=== PATIENT | male | born 1960 | race Caucasian/White ===

== ENCOUNTER 2025-03-02 15:23 | Inpatient (IN) | payer MEDICARE, BC, SELFPAY ==
--- NOTE | ~2025-03-02 | CT_ITS ---
CLINICAL HISTORY: AMS CT head without contrast. COMPARISON: CT head dated 03/02/25 at 15:51 EDT FINDINGS: Cutaneous mauro along the lateral right calvarium. The visualized paranasal sinuses are clear. The mastoid air cells are clear. No calvarial fracture. Atherosclerotic intracranial vasculature. No evidence for mass or mass effect. No intracranial hemorrhage or abnormal extra-axial fluid collection. The ventricles are proportional with the degree of mild global cerebral volume loss without evidence of hydrocephalus. Basilar cisterns are patent. Posterior fossa appears unremarkable. IMPRESSION: 1. No acute intracranial findings. This document has been electronically signed by: Blake Crouch MD on 03/06/2025 17:56:44
--- NOTE | ~2025-03-02 | XR_ITS ---
CLINICAL HISTORY: posterior rib pain, fall, no sob 6 view left ribs Comparison: None provided Findings: Mild irregular contour in the posterior aspect of the left 8th and 9th ribs. No left-sided pneumothorax or significant pleural effusion. Degenerative changes of the thoracic spine. IMPRESSION: 1. Nondisplaced fractures of the left 8th and 9th ribs posteriorly of indeterminate age. Correlate clinically. This document has been electronically signed by: Balbina Lopez MD on 03/02/2025 19:32:53
--- NOTE | ~2025-03-02 | CT_ITS ---
CLINICAL HISTORY: fall head strike CT cervical spine without contrast Comparison: None provided Findings: Minimal grade 1 anterolisthesis at C7-T1. Otherwise alignment is maintained. Vertebral body height is maintained. No acute fracture in the cervical spine. Craniocervical junction is intact. Multilevel degenerative disc disease most significantly involving C5-6 and C6-7. Prevertebral soft tissues within normal limits. Lung apices are clear. IMPRESSION: No acute findings. This document has been electronically signed by: Balbina Lopez MD on 03/02/2025 19:03:49
--- NOTE | ~2025-03-02 | CT_ITS ---
CLINICAL HISTORY: fall +head strike CT head without contrast Comparison: None provided Findings: No intra-axial mass, midline shift, hydrocephalus, or acute hemorrhage. No significant atrophy. Mild nonspecific supratentorial white matter hypodensities most suggestive of mild chronic small-vessel ischemic changes. Small encephalomalacia of the superior aspect of the left cerebellar hemisphere suggestive of small nonacute infarct. Atherosclerotic vascular disease. There is no sinus or mastoid fluid. The orbits are within normal limits. There is no acute Skull fracture. IMPRESSION: 1. No acute intracranial findings. 2. Small nonacute left cerebellar hemisphere infarct and mild white matter chronic ischemic changes. This document has been electronically signed by: Balbina Lopez MD on 03/02/2025 18:56:27
--- NOTE | ~2025-03-02 | MR_ITS ---
CLINICAL HISTORY: AMS, ? subacute stroke MR brain without contrast. COMPARISON: CT head dated 03/06/25 at 17:04 EDT FINDINGS: No abnormal diffusion restriction in the brain parenchyma or extra-axial spaces. No evidence of mass, mass effect or midline shift. No intracranial hemorrhage or abnormal extra-axial fluid collection. The ventricles are proportional with the degree of mild cerebral volume loss without evidence of hydrocephalus. Basilar cisterns are patent. Cerebellar hemispheres and cerebellar vermis are normal. Fourth ventricle is normal. Chronic left cerebellar infarcts. Intracranial flow voids are patent. The visualized paranasal sinuses and mastoid air-cells are clear. IMPRESSION: 1. No acute intracranial findings. No evidence of acute ischemia, mass or mass effect. 2. Chronic left cerebellar infarct. This document has been electronically signed by: Blake Crouch MD on 03/07/2025 16:36:55
[2025-03-02 15:30] VITALS: BP 107/87; PULSE 69; RESP 16; TEMP 36.7; O2SAT 96; BMI 20.6
--- NOTE | 2025-03-02 15:31 | ECG_ITS ---
Test Reason : weakness, fall Blood Pressure : */* mmHG Vent. Rate : 67 BPM Atrial Rate : 67 BPM P-R Int : 170 ms QRS Dur : 104 ms QT Int : 426 ms P-R-T Axes : 27 5 -57 degrees QTcB Int : 450 ms Sinus rhythm with occasional Premature ventricular complexes Septal infarct , age undetermined ST & T wave abnormality, consider anterolateral ischemia Abnormal ECG No previous ECGs available Referred By: Summer Willett Electronically Signed By: JONI LUX MD
--- NOTE | 2025-03-02 15:35 | ED.FALL ---
HPI - Fall General Chief Complaint: Fall Stated Complaint: fell minor laceration on back of head Time Seen by Provider: 03/02/25 16:02 Source: patient Mode of arrival: ambulatory Limitations: no limitations History of Present Illness ED Provider: Dr. Sissy Lima HPI Narrative: patient comes to the emergency room accompanied by his . Earlier today, patient had fall, complaining of a laceration to the scalp on the right side. Patient denies being on blood thinners. According to the patient's , patient's seems to be more unsteady than usual for the last few weeks. According to the , the patient has been a bit more shaky than usual. patient denies headache or neck pain. Patient also complaining of scalp pain. Patient has posterior rib pain as well. Patient has no difficulty breathing. Related Data Home Medications ?Medication ?Instructions ?Recorded ?Confirmed buprenorphine 8 mg-naloxone 2 mg 1 film sublingual DAILY 03/03/25 03/03/25 sublingual film calcipotriene 0.005 % topical 1 appl topical BID 03/03/25 03/03/25 ointment diltiazem HCl 360 mg 360 mg PO DAILY 03/03/25 03/03/25 capsule,extended release 24 hr duloxetine 30 mg capsule,delayed 30 mg PO BID 03/03/25 03/03/25 release fluorouracil 5 % topical cream 1 appl topical BID 03/03/25 03/03/25 gabapentin 400 mg capsule 400 mg PO DAILY 03/03/25 03/03/25 gabapentin 800 mg tablet 800 mg PO BID 03/03/25 03/03/25 ibuprofen 600 mg tablet 600 mg PO TID 03/03/25 03/03/25 lisinopril 40 mg tablet 40 mg PO QAM 03/03/25 03/03/25 metoprolol tartrate 25 mg tablet 12.5 mg PO BID 03/03/25 03/03/25 omeprazole 20 mg capsule,delayed 20 mg PO DAILY 03/03/25 03/03/25 release ondansetron HCl 8 mg tablet 8 mg PO Q8H PRN Nausea And Vomiting 03/03/25 03/03/25 tizanidine 4 mg tablet 4 mg PO BID PRN Muscle Spasm 03/03/25 03/03/25 valacyclovir 1 gram tablet 2,000 mg PO Q12H PRN Outbreak 03/03/25 03/03/25 Allergies Allergy/AdvReac Type Severity Reaction Status Date / Time Sulfa (Sulfonamide Allergy Rash Verified 03/02/25 15:37 Antibiotics) Review of Systems Review of Systems: Constitutional : No Weight loss, No Fever, No Chills, No Night Sweats, No Fatigue, No Malaise ENT/Mouth : No Hearing loss, No Ear Pain, No Nasal Congestion, No Sinus Pain, No Hoarseness, No sore throat, No Rhinorrhea, No Swallowing Difficulty Eyes: No Eye Pain, No Swelling, No Redness, No Foreign Body, No Discharge, No Vision Changes Cardiovascular : No Chest Pain, No SOB, No Dyspnea on Exertion, No Orthopnea, No Edema, No Palpitations Respiratory : No Cough, No Sputum, No Wheezing, No Smoke Exposure, No Dyspnea Gastrointestinal : No Nausea, No Vomiting, No Diarrhea, No Constipation, No abdominal Pain, No Hematochezia, No Melena Genitourinary : no irregular bleeding, No Dysuria, No Urinary Frequency, No Hematuria, No Urinary Incontinence, No Urgency, No Flank Pain, No Urinary Flow Changes, No Hesitancy Musculoskeletal : No joint pain, No Myalgias, No Joint Swelling, complaining of posterior rib pain on the left side Skin : Complaining of a laceration to the right side of the scalp Neuro : No Weakness, No Numbness, No Paresthesias, No Loss of Consciousness, No Dizziness, No Headache Psych : No Anxiety/Panic, No Depression, No SI/HI/AH/VH, No Social Issues, Heme/Lymph: No Bruising, No Bleeding,No Lymphadenopathy Endocrine : No Polyuria, No Polydipsia, No Temperature Intolerance [facility] Past Medical History Medical History Hypertension Social History Social History Alcohol intake: current Alcohol intake frequency: 3 or more drinks per day Alcohol type: beer Smoked in Last 30 Days: No Use of substances other than those prescribed or required for medical reasons: No Advance Directives: No Advance Directives Information Provided: No Do you have a plan to hurt others: No Plan Physical Exam Vital Signs: Vital Signs: Last Vital Signs Temp 97.6 F 03/03/25 08:00 Pulse 63 03/03/25 16:30 Resp 18 03/03/25 16:30 BP 176/93 H 03/03/25 16:30 Pulse Ox 98 06/30/25 16:30 O2 Del Method Room Air 03/03/25 08:00 BMI result Body Mass Index 20.6 Const: Other: Appearance: Alert. Oriented X3. No acute distress. Eyes: Pupils equal, round and reactive to light. ENT: Pharynx normal. Neck: Normal inspection. Neck supple. No lymph nodes noted. No crepitus CVS: Normal heart rate and rhythm. Pulses normal. Normal S1 and S2 Respiratory: No respiratory distress. Breath sounds normal. No Wheezing. No rales Abdomen: Soft and nontender. No rigidity. No distention. Skin: Skin warm and dry. Normal skin color. Normal skin turgor. patient has a 4 cm laceration in the scalp Extremities: No lower extremity edema. No Lacerations. No Rash. Patient has bilateral charcot arthopathy Neuro: Oriented X 3. No motor deficit. No sensory deficit. Moving all extremities. No slurred speech. CN 2 through 12 grossly intact. Patient has normal facies. However, patient's seems to have a bit of resting tremor in 1 hand at the time, almost pill rolling like. also, patient's seems to be having intention tremor. When patient reaches out for objects, the tremor gets worse. Psych: calm, cooperative, normal affect Course Course Course Narrative: 03/02/25 1535 CORTES Santizo This is a Rapid Medical Examination (RME) performed by Rachana Willett PA-C in triage. Full HPI, ROS, assessment and treatment plan per primary provider in the Main ED. Hx: 64 yo M here w/ following fall mirian stairs [employer]. reports ascending his garage stairs, when he felt too weak to open the door, fell backwards down 4 stairs w/ head strike. no LOC. no thinners. states patient has felt generally unwell, unsteady and shaky for the past few days. PE/vitals: tremulous. AOX3. lac to posterior head, no active bleeding. no midline c spine tenderness. Plan: labs, ekg, imaging Medications Administered Generic Name Dose Route Start Last Admin Trade Name Freq PRN Reason Stop Dose Admin Buprenorphine/Naloxone 1 film 03/03/25 14:30 03/03/25 15:00 Buprenorphine/Naloxone 8/2 Mg Film SUBLINGUAL 1 film DAILY JAMA Administration Diltiazem HCl 360 mg 03/03/25 14:30 03/03/25 14:55 Diltiazem Hcl Cd 180 Mg Cap.Er.24h PO 360 mg DAILY JAMA Administration Protocol Enoxaparin Sodium 40 mg 03/03/25 11:00 03/03/25 12:11 Enoxaparin Sodium 40 Mg/0.4 Ml Syringe SUBCUT 40 mg Q24H JAMA Administration Famotidine 20 mg 03/03/25 10:40 03/03/25 11:11 Famotidine 20 Mg Tablet PO 20 mg BID JAMA Administration Folic Acid 1 mg 03/03/25 10:40 03/03/25 11:11 Folic Acid 1 Mg Tablet PO 03/06/25 10:39 1 mg DAILY JAMA Administration Thiamine HCl 200 mg/ Sodium 102 mls @ 204 mls/hr 03/03/25 11:00 03/03/25 13:30 Chloride IV 03/04/25 23:29 Infused Q12H JAMA Infusion Ibuprofen 600 mg 03/03/25 15:00 03/03/25 14:54 Ibuprofen 600 Mg Tablet PO 600 mg TID JAMA Administration Lisinopril 40 mg 03/03/25 14:30 03/03/25 14:55 Lisinopril 40 Mg Tablet PO 40 mg DAILY JAMA Administration Protocol Metoprolol Tartrate 12.5 mg 03/03/25 14:30 03/03/25 14:55 Metoprolol Tartrate 12.5 Mg Halftab PO 12.5 mg BID [facility] Administration Protocol Multivitamins/Vitamin C 1 tab 03/03/25 10:40 03/03/25 11:11 Multivitamin Tablet PO 03/06/25 10:39 1 tab DAILY JAMA Administration Sodium Chloride 3 ml 03/03/25 16:00 03/03/25 17:16 0.9 % Sodium Chloride Flush 3 Ml Syringe IVFLUSH 3 ml QSHIFT [facility] Administration Discontinued Medications Generic Name Dose Route Start Last Admin Trade Name Freq PRN Reason Stop Dose Admin Chlordiazepoxide HCl 50 mg 03/03/25 04:47 03/03/25 05:11 Chlordiazepoxide Hcl 25 Mg Capsule PO 03/03/25 04:48 50 mg ONCE ONE Administration Magnesium Sulfate 2 gm in 50 mls @ 25 mls/hr 03/02/25 16:25 03/02/25 18:50 Magnesium Sulfate/H2o IV 03/02/25 18:24 Infused ONCE ONE Infusion Potassium Chloride 10 meq in 100 mls @ 100 mls/hr 03/03/25 13:15 03/03/25 15:03 Potassium Chloride/H20 IV 03/03/25 15:14 100 mls/hr Q1H JAMA Administration Ibuprofen 600 mg 03/02/25 22:44 03/02/25 22:50 Ibuprofen 600 Mg Tablet PO 03/02/25 22:45 600 mg ONCE ONE Administration Lidocaine/Epinephrine 10 ml 03/02/25 16:25 03/02/25 16:49 Lidocaine Hcl 1%/Epi 1:100,000 10 Ml Vial INFILTRATI 03/02/25 16:26 10 ml ONCE ONE Administration Lisinopril 40 mg 03/03/25 09:19 03/03/25 09:41 Lisinopril 40 Mg Tablet PO 03/03/25 09:20 40 mg ONCE ONE Administration Protocol Phenobarbital Sodium 310 mg 03/03/25 09:30 03/03/25 09:36 Phenobarbital Sodium 130 Mg/Ml Im Once IM 03/03/25 09:31 310 mg ONCE ONE Administration Phenobarbital Sodium 230 mg 03/03/25 12:30 03/03/25 16:25 Phenobarbital Sodium 130 Mg/Ml Vial Im Q3hx2 IM 03/03/25 15:31 230 mg Q3H JAMA Administration Potassium Chloride 20 meq 03/02/25 16:26 03/02/25 16:49 Potassium Chloride Er 20 Meq Tab.Er.Prt PO 03/02/25 16:27 20 meq ONCE ONE Administration Procedures Laceration Laceration 1: Site: scalp Size (cm): 4 Description: linear Depth: simple, single layer Local Anesthetic: lidocaine 1% and with epi Amount of anesthesia used (mL): 5 Pre-repair: wound explored Skin layer closed with: other ( mauro) Size (cm): 4-0 Number of sutures: 5 Medical Decision Making Medical Decision Making MDM Narrative: my interpretation of labs: No significant abnormality in patient's hematology, chemistry shows a potassium 3.2, which was repleted p.o., magnesium of 1.3, repleted IV. . It was noted that patient has an elevation in LFTs. Patient has no abdominal pain at all. Urinalysis negative for UTI, ETOH negative I discussed with the patient and his that his head CT shows an old stroke. According to the patient's , she remembers that about a month ago she had a similar episode of weakness and confusion about a month ago which self-resolved. To patient's knowledge, he has never been diagnosed with a TIA overall, patient states that even with a target foot his usually able to walk, however over the last few weeks, he has gradually been declining. I discussed with the patient and his that eventually they will need a neurology consult. It is possible that patient may have tremor versus beginning of Parkinson's. In the meantime, the patient's states that she feels very anxious about taking the patient home because he may fall. I discussed with the patient and his that we can do a physical therapy and case management consult, and tomorrow they will give their recommendations for disposition, both agree with plan x-rays show nondisplaced 8th and 9th rib fractures on the left. Patient aware. Plan: pain control, no difficulty breathing. Time: 08:50 Date: 03/03/25 Provider: CORTES Wilkins Patient in physician observation for case management needs. There was concern overnight that patient was increasingly shaky, question of hallucinating, shouting for a person named Karely overnight. I evaluated patient, patient states that he drinks daily, states that it typically drinks 3 beers at home, and then goes out occasionally as well. Patient states that he drinks every day, states he has been drinking every day for the last 20-30 years. Denies history of stopping alcohol use, unsure of any history of alcohol withdrawal. Patient is alert and oriented however seems to ramble, with a flight of ideas, at one point he seemed as though he thought he knew me. Given this concern that this may be secondary to alcohol withdrawal, he would be best served to be admitted for alcohol withdrawal. Patient started on phenobarb protocol. Transfer of care initiated. Differential Diagnosis Differential Diagnoses: The differential diagnosis associated with the presentation includes ( weakness, UTI, deconditioning, Parkinson's, tremor, intracranial bleed, cervical spine injury) Admission/Observation Consideration of admission/observation: Escalation of care including admission/observation considered ( patient is under physician observation waiting to be seen by the care team) Lab Data MDM Lab Attestation statement: I reviewed the patient's lab results. 03/03/25 11:54 03/03/25 11:54 Labs: Lab Results 03/02/25 03/02/25 03/02/25 Range/Units 15:46 16:18 17:59 WBC 6.2 (4.8-10.8) X10*3/uL RBC 4.48 L (4.60-5.80) X10*6/uL Hgb 13.4 L (14.0-18.0) g/dl Hct 39.8 L (42.0-52.0) % MCV 88.8 (80.0-98.0) fL MCH 29.9 (27.0-33.0) pg MCHC 33.7 (31.0-36.0) g/dl RDW 13.3 (11.0-16.0) % Plt Count 275 (160-400) X10*3/uL MPV 8.9 L (9.4-12.4) fL Immature Gran % (Auto) 0.3 (0.0-0.4) % Neut % (Auto) 71.5 (45-73) % Lymph % (Auto) 16.5 L (20-40) % [place] % (Auto) 7.2 (2-11) % Eos % (Auto) 3.7 (0-4) % Baso % (Auto) 0.8 (0-2) % Lymph # (Auto) 1.0 L (1.2-4.9) X10*3/uL [place] # (Auto) 0.5 (0.1-1.2) X10*3/uL Eos # (Auto) 0.2 (0.0-0.4) X10*3/uL Baso # (Auto) 0.1 (0.0-0.2) X10*3/uL Abs Immat Gran (auto) 0.02 (0.00-0.03) X10*3/uL Absolute Neuts (auto) 4.5 (2.0-8.3) x10*3/uL Absolute Nucleated RBC 0.000 (0.0-0.012) X10*3/uL Nucleated RBC % (auto) 0.0 (0.0-0.2) /100WBC Sodium 138 (135-145) mmol/L Potassium 3.2 L (3.3-5.1) mmol/L Chloride 100 (96-108) mmol/L Carbon Dioxide 27 (22-29) mmol/L Anion Gap 14 (12-20) BUN 8 L (9-16) mg/dL Creatinine 1.30 (0.5-1.4) mg/dL Estim Creat Clear Calc 54.5 Estimated GFR 55 Random Glucose 112 (60-115) mg/dL Calcium 9.3 (8.4-10.2) mg/dL Magnesium 1.3 L* (1.6-2.6) mg/dL Iron 176 H (45-160) mcg/dL TIBC 245 (228-428) mcg/dL % Saturation 72 H (15-50) % Unsat Iron Binding 69 ug/dL Total Bilirubin 1.9 H (0.0-1.0) mg/dL AST 79 H (5-37) U/L ALT 46 H (0-40) U/L Alkaline Phosphatase 206 H (39-117) U/L Troponin I High Sens 25.0 (<3.5-35.0) ng/L Total Protein 7.4 (6.5-8.0) g/dL Albumin 4.1 (3.5-5.0) g/dL Urine Color Yellow Urine Appearance Clear Urine pH 5.5 (5.0-9.0) Ur Specific [place] 1.015 (1.005-1.025) Urine Protein Trace (Neg-Trace) mg/dL Urine Glucose (UA) Negative (Negative) mg/dL Urine Ketones Trace (Negative) mg/dL Urine Blood Negative (Negative) Urine Nitrite Negative (Negative) Ur Leukocyte Esterase Trace H (Negative) Urine RBC 0-2 (0-2) /HPF Urine WBC 0-5 (0-5) /HPF Ur Squamous Epith Cells 0-2 (0-2) /HPF Urine Bacteria None Seen (None Seen) Hyaline Casts 3-5 (0-2) /LPF Ethyl Alcohol < 10 mg/dL Independent Interpretation I performed an independent interpretation of an: EKG, Plain X-Ray and CT Scan Interpretation: my interpretation of EKG: Normal sinus rhythm, heart rate 67, no ST segment depression or elevation, no T-wave inversion, QTC 450, occasional PVCs Radiology Impression Discussion of test interpretation with radiology: I have reviewed the radiologist's reading. Radiologist Impression: 1. Nondisplaced fractures of the left 8th and 9th ribs posteriorly of indeterminate age. Correlate clinically. No acute intracranial findings. 2. Small nonacute left cerebellar hemisphere infarct and mild white matter chronic ischemic changes Minimal grade 1 anterolisthesis at C7-T1. Otherwise alignment is maintained. Vertebral body height is maintained. No acute fracture in the cervical spine. Craniocervical junction is intact. Multilevel degenerative disc disease most significantly involving C5-6 and C6-7. Critical Care Time Critical Care Time Critical Care Time: Yes Total Critical Care Time: 60 Attestation: I have personally provided critical care time. Time includes review of lab data, radiology results, discussion with consultants, and monitoring for potential decompensation. Intervention performed as documented. Discharge Plan Discharge Clinical Impression: Weakness, Fall, Laceration of scalp, Closed rib fracture, Tremor Patient Disposition: Admitted As Inpatient
[2025-03-02 15:54] LABS: Hematocrit 39.8 % (42.0-52.0); Hemoglobin 13.4 g/dl (14.0-18.0); Imm Gran Abs Auto 0.02 X10*3/uL (0.00-0.03); Imm Gran Pct Auto 0.3 % (0.0-0.4); Lymphocytes Absolute Auto 1.0 X10*3/uL (1.2-4.9); MANUAL DIFF FLAG NO; Mean Corpuscular HGB Conc 33.7 g/dl (31.0-36.0); Mean Corpuscular Hemoglobin 29.9 pg (27.0-33.0); Mean Corpuscular Volume 88.8 fL (80.0-98.0); NRBC Abs Auto 0.000 X10*3/uL (0.0-0.012); NRBC Pct Auto 0.0 /100WBC (0.0-0.2); Platelet Count 275 X10*3/uL (160-400); Red Blood Count 4.48 X10*6/uL (4.60-5.80); White Blood Count 6.2 X10*3/uL (4.8-10.8)
[2025-03-02 16:12] LABS: Alanine Aminotransferase 46 U/L (0-40); Albumin Level 4.1 g/dL (3.5-5.0); Alkaline Phosphatase 206 U/L (39-117); Anion Gap 14 (12-20); Aspartate Amino Transferase 79 U/L (5-37); Blood Urea Nitrogen 8 mg/dL (9-16); Calcium 9.3 mg/dL (8.4-10.2); Carbon Dioxide 27 mmol/L (22-29); Chloride 100 mmol/L (96-108); Creatinine Clr Calc Pharmacy 54.5; Estimated Glomerular Filt Rate 55; Magnesium 1.3 mg/dL (1.6-2.6); Potassium 3.2 mmol/L (3.3-5.1); Sodium 138 mmol/L (135-145); Total Protein 7.4 g/dL (6.5-8.0)
[2025-03-02 16:16] LABS: Troponin-I High Sensitivity 25.0 ng/L (<3.5-35.0)
--- NOTE | 2025-03-02 16:21 | PC.NURSE ---
patient a&ox3, iv inserted, labs drawn, pt had ct performed, vss, cardiac rehabilitation program director applied, call vasquez within reach, plan of care ongoing
--- OUTSIDE RECORDS SUMMARY | 2025-03-02 16:25 | XMS_ITS | Encounter Summary ---
Author Organization [facility] Address [address] [place] [address] Phone Care Team Providers Care Sports Management Intern Name Role Phone Jennifer Simeon NP Primary Care Provider [phone] Encounter Details Date Type Department Care Team (Late st Contact Info) Description 10/28/2022 Documentation Only [facility], [address] [place] [id number] Jennifer Simeon NP [address] [place] [address] Social History Tobacco Use Types Packs/Day Years Used Date Smoking Tobacco: Never Assessed Sex and Gender Information Value Date Recorded Sex Assigned at Not on file Legal Sex Male 11:05 AM EDT Gender Identity Not on file Sexual Orientation Not on file documented as of this encounter Plan of Treatment Not on file documented as of this encounter Visit Diagnoses Not on filedocumented in this encounter Care Teams Sports Management Intern Relationship Specialty Start Date End Date Jennifer Simeon NP [address] [place] [address] PCP - General Nurse Practitioner 05/04/20 documented as of this encounter
[2025-03-02 16:45] LABS: Iron 176 mcg/dL (45-160); Percent Iron Saturation 72 % (15-50); Total Iron Binding Capacity 245 mcg/dL (228-428); Unsaturated Iron Binding 69 ug/dL
[2025-03-02] MEDS: Lidocaine HCl 1%/Epi 1:100,000 10 ML VIAL INFILTRATI (16:49)
[2025-03-02] MEDS: Potassium Chloride ER 20 MEQ TAB.ER.PRT PO (16:49)
[2025-03-02] MEDS: Magnesium Sulfate/H2O 2 GM/50 ML PIGGYBACK IV (16:50)
--- NOTE | 2025-03-02 16:57 | PC.NURSE ---
pt medicated per order
--- NOTE | 2025-03-02 16:58 | PC.NURSE ---
lt foot pts left foot lookds to have some swelling and deformity, per pt was diagnosed with charcot foot deformity, pt does NOT wear a darco boot.
[2025-03-02 18:06] LABS: Appearance Urine Clear; Glucose Urine UA Negative (Negative); PH 5.5 (5.0-9.0); Specific Gravity - Urine 1.015 (1.005-1.025); UMIC TRIGGER UACC YES
[2025-03-02 18:31] VITALS: BP 127/64; PULSE 68; RESP 14; O2SAT 96
--- NOTE | 2025-03-02 22:18 | PC.NURSE ---
pt ambulated to bathroom with walker and 1 assist, pt very unsteady on his feet. assist back into bed, urinal at bedside
[2025-03-02 22:33] VITALS: BP 148/74; PULSE 69; RESP 15; TEMP 36.4; O2SAT 96
[2025-03-03] VITALS (13 sets, daily range): BP systolic 172–209; BP diastolic 84–105; PULSE 52–80; RESP 12–19; TEMP 35.9–36.8; O2SAT 95–98; BMI 19.4
--- NOTE | 2025-03-03 04:55 | PC.NURSE ---
pt appears to be hallucinating, seeing people in his room that are not there. pt no longer oriented, knows name and year only, unsure of date or why he is here. needs more redirection at times, very confused. MD Pelayo made aware
--- NOTE | 2025-03-03 06:02 | PC.NURSE ---
comes in s/p fall. has reportedly had increased frequency of falls recently. +HS -thinners. L rib pain. drinks ETOH daily. pt arrives alert and oriented although speech rambled/unclear at times. nondisplaced left 8th and 9th rib fracture seen. ambulatory with walker and moderate assist. as of this morning, patient became more confused, disoriented with visual hallucinations, and other symptoms -- see ciwa. librium given per MD order. patient takes pills whole. pulled IV and telemetry wires. cleaned up and now in bed, calm. PT/CM. visits. ?parkinson's per previous nurse
--- NOTE | 2025-03-03 07:03 | PC.NURSE ---
right forearm line pt pulled out. new #20 IV to left forearm wrapped up with gauze. flushes easily, positive blood return
--- NOTE | 2025-03-03 08:13 | PC.NURSE ---
Pt is calm, cooperative. Sts 5/10 pain at his feet, chronic. RR even and unlabored, denies any chest pain or SOB. Pt A+Ox2 to person and place, knows it's 2024 but thought it was MondayMarch 13. Minor tremor noted when hands held out.
--- NOTE | 2025-03-03 09:17 | PM.IMHP ---
History of Present Illness Date of Service: 03/03/25 Attending physician on admission: Tez Aquino Chief Complaint: Fall at home, confusion Pt is a 64-year-old male with a PMH significant for HTN,?GERD who initially presented yesterday on 03/02 to the ED after fall at home with head strike and laceration to the right scalp. Pt was accompanied by his who report pt was in his garage going up the stairs into the house when he felt too weak to open the door and fell backward down 4 stairs, striking his head. reports pt has been feeling overall generally unwell, unsteady, and shaky for the past few days. Pt was noted to have both a resting and essential tremor, that was initially concerning for possible parkinsonism. Workup yesterday showed nondisplaced fractures of left 8th and 9th ribs posteriorly. CT of head negative for acute intracranial findings, though showed small nonacute left cerebral hemisphere infarct and mild white matter chronic ischemic changes. CTA of C-spine negative for acute findings. Labs were significant for mild anemia of mild anemia of 13.4/39.8, potassium 3.2, magnesium 1.3, T bili 1.9, AST 79, ALT 46, and alk-phos 206. Ethyl alcohol levels undetectable. UA negative for UTI. Negative for flu, COVID, RSV. did not feel safe bringing the pt home due to his deconditioning and pt was placed in PT/CM physician observation. Overnight in overflow pt was noted to have increased shakiness and what seemed to be acute encephalopathy, as pt appeared to be hallucinating, shouting for a person named Karely, and occasionally talking nonsensically. Upon re-evaluation by ED clinician pt reported that he has been drinking daily for the past 20-30 years, typically at least 3 beers a day. Concern was for acute alcohol withdrawal. Pt seen and evaluated at bedside where he has been aggressive, combative, accusatory, apprehensive, and uncooperative with full interview and examination, as well as emotionally labile. Pt has intermittently increased confusion/encephalopathy. Pt is alert and oriented to self, place, time, and situation, as pt remembers falling at home in the garage with his head laceration. However, pt at other times speaks nonsensically/bizarrely, seemingly forgetting his fall and stating he came to the hospital because of his daughter and a performance she was doing at school. Pt uncooperative with full interview and exam, refusing to answer questions or participate with evaluation. Pt ends the interview tearful and feeling underappreciated for all the cleaning and cooking he does in the house. He then asks me to make sure I remember to bring him the keys when I come back to see him. Contacted the patient's who reports that pt has been heavy drinker all of his life, though he tends to hide this from other people, and is uncertain exactly how much he drinks. Reports it is likely 10-15+ beers daily, especially the past 5-10 years after retiring. She does not recall him ever experiencing similar withdrawal symptoms before. Review of Systems Review of Systems: Yes Unobtainable due to mental status [facility] Medical History Hypertension Social History Alcohol intake: current Alcohol intake frequency: 3 or more drinks per day Alcohol type: beer Smoked in Last 30 Days: No Use of substances other than those prescribed or required for medical reasons: No Advance Directives: No Advance Directives Information Provided: No Do you have a plan to hurt others: No Plan Meds Allergies Allergy/AdvReac Type Severity Reaction Status Date / Time Sulfa (Sulfonamide Allergy Rash Verified 03/02/25 15:37 Antibiotics) Active Medications: Current Medications Pharmacy Consult (Consult Rx Etoh Phenob Im/Po) 1 each MISCELLANE ONCE PRN; Protocol PRN Reason: Consult order Phenobarbital (Phenobarbital 30 Mg Tablet) 60 mg PO BID JAMA Stop: 03/05/25 09:01 Phenobarbital (Phenobarbital 30 Mg Tablet) 30 mg PO BID JAMA Stop: 03/07/25 09:01 Phenobarbital (Phenobarbital 30 Mg Tablet) 30 mg PO BEDTIME JAMA Stop: 03/08/25 21:01 Phenobarbital Sodium (Phenobarbital Sodium 130 Mg/Ml Im Once) 310 mg IM ONCE ONE Stop: 03/03/25 09:31 Phenobarbital Sodium (Phenobarbital Sodium 130 Mg/Ml Vial Im Q3hx2) 230 mg IM Q3H JAMA Stop: 03/03/25 15:31 Home Medications ?Medication ?Instructions ?Recorded ?Confirmed ?Last Taken ?Type buprenorphine 8 mg-naloxone 2 mg 1 film sublingual DAILY 03/03/25 03/03/25 Unknown History sublingual film calcipotriene 0.005 % topical 1 appl topical BID 03/03/25 03/03/25 Unknown History ointment diltiazem HCl 360 mg 360 mg PO DAILY 03/03/25 03/03/25 Unknown History capsule,extended release 24 hr duloxetine 30 mg capsule,delayed 30 mg PO BID 03/03/25 03/03/25 Unknown History release fluorouracil 5 % topical cream 1 appl topical BID 03/03/25 03/03/25 Unknown History gabapentin 400 mg capsule 400 mg PO DAILY 03/03/25 03/03/25 Unknown History gabapentin 800 mg tablet 800 mg PO BID 03/03/25 03/03/25 Unknown History ibuprofen 600 mg tablet 600 mg PO TID 03/03/25 03/03/25 Unknown History lisinopril 40 mg tablet 40 mg PO QAM 03/03/25 03/03/25 Unknown History metoprolol tartrate 25 mg tablet 12.5 mg PO BID 03/03/25 03/03/25 Unknown History omeprazole 20 mg capsule,delayed 20 mg PO DAILY 03/03/25 03/03/25 Unknown History release ondansetron HCl 8 mg tablet 8 mg PO Q8H PRN Nausea And Vomiting 03/03/25 03/03/25 Unknown History tizanidine 4 mg tablet 4 mg PO BID PRN Muscle Spasm 03/03/25 03/03/25 Unknown History valacyclovir 1 gram tablet 2,000 mg PO Q12H PRN Outbreak 03/03/25 03/03/25 Unknown History Physical Exam Vital Signs and Narrative: Vital Signs: Last Vital Signs Temp 97.6 F 03/03/25 08:00 Pulse 67 03/03/25 08:00 Resp 18 03/03/25 08:00 BP 172/94 H 03/03/25 08:00 Pulse Ox 97 03/03/25 08:00 O2 Del Method Room Air 03/03/25 08:00 BMI result Body Mass Index 20.6 Limited as pt uncooperative General: Awake and alert, oriented to person, place, time, and situation, though at other times appears confused and encephalopathic. In no acute distress Head: Laceration of right scalp closed by 5 mauro Resp: CTA bilaterally CVS: S1, S2, RRR GI: +BS, NT, no distention Skin: Warm, dry Neuro: Cranial nerves II-XII grossly intact bilaterally. Motor grossly intact bilaterally. Pt uncooperative for full neurological evaluation. Extremities: No edema Psych: Aggressive, apprehensive, combative, accusatory, uncooperative, and emotionally labile Results Labs 03/03/25 11:54 03/03/25 11:54 Labs: Laboratory Results - last 24 hr 03/02/25 03/02/25 03/02/25 15:46 16:18 17:59 MCV 88.8 MCH 29.9 MCHC 33.7 RDW 13.3 Plt Count 275 MPV 8.9 L Immature Gran % (Auto) 0.3 Neut % (Auto) 71.5 Lymph % (Auto) 16.5 L Mathe[place] % (Auto) 7.2 Eos % (Auto) 3.7 Baso % (Auto) 0.8 Lymph # (Auto) 1.0 L [place] # (Auto) 0.5 Eos # (Auto) 0.2 Baso # (Auto) 0.1 Abs Immat Gran (auto) 0.02 Absolute Neuts (auto) 4.5 Absolute Nucleated RBC 0.000 Nucleated RBC % (auto) 0.0 Anion Gap 14 Estim Creat Clear Calc 54.5 Estimated GFR 55 Random Glucose 112 Calcium 9.3 Magnesium 1.3 L* Iron 176 H TIBC 245 % Saturation 72 H Unsat Iron Binding 69 Total Bilirubin 1.9 H AST 79 H ALT 46 H Alkaline Phosphatase 206 H Troponin I High Sens 25.0 Total Protein 7.4 Albumin 4.1 Urine Color Yellow Urine Appearance Clear Urine pH 5.5 Ur Specific [place] 1.015 Urine Protein Trace Urine Glucose (UA) Negative Urine Ketones Trace Urine Blood Negative Urine Nitrite Negative Ur Leukocyte Esterase Trace H Urine RBC 0-2 Urine WBC 0-5 Ur Squamous Epith Cells 0-2 Urine Bacteria None Seen Hyaline Casts 3-5 Ethyl Alcohol < 10 Assessment and Plan (1) Acute metabolic encephalopathy: Status: Acute (2) Alcohol withdrawal: Status: Acute Plan Pt is a 64-year-old male with a PMH significant for HTN,?GERD who initially presented yesterday on 03/02 to the ED after fall at home with head strike and laceration to the right scalp. He then asks me to make sure I remember to bring him the keys when I come back to see him. Acute encephalopathy Concerning for acute alcohol withdrawal reports pt drinks around 10-15 beers daily Tremulous, confused, hallucinating, agitated and combative Continue Phenobarb protocol Daily multivitamin, folic acid Thiamine 200mg IV bid x2 days, p.o. after than Follow Mag tiny, DARCI CIWA scale Addiction medicine consult Monitor on telemetry Hypertensive urgency BP as high as 209/101 Continue diltiazem, lisinopril, metoprolol Hydralazine 5 mg IV p.r.n. for SBP >170 Follow BP closely Fall at home S/p 5 mauro to close right scalp laceration, nondisplaced fractures of left 8th and 9th ribs posteriorly PT recommending STR upon discharge Neuropathy Continue gabapentin GERD Continue omeprazole Mood disorder Continue duloxetine Full Code Attending:?Dr. Aquino DVT Prophylaxis: Lovenox Pt will require a hospitalization of at least two nights for treatment of?acute metabolic encephalopathy likely in the setting of acute alcohol withdrawal. Pt will require hospital level care for administration of phenobarb protocol and close cardiac monitoring. Quality Stroke Does the patient have a stroke diagnosis?: No VTE Prior VTE?: No VTE Risk Level:: Medical - moderate - high VTE Device Contraindication: Treatment Not Indicated VTE Drug Contraindication: N/A - Med Ordered
--- NOTE | 2025-03-03 09:32 | MHC.EDTECH ---
Pt attempted to walk to bathroom, bedside commode at bedside pt has unsteady gait could not maintain balance. Pt seem confuse state we were here lastnight and we were not. pt is up step cordless phone unable. He would like to make a phone call. he upset doesnt want any assistance but due to fall risk unable to leave the bedside. Pt is back in bed alarm bed on once again.
--- NOTE | 2025-03-03 09:35 | MHC.CM.ED ---
Received case management consult overnight. Received notification patient will be medically admitted. Continue to monitor for d/c needs.
[2025-03-03] MEDS: PHENobarbitaL sodium 130 MG/ML IM ONCE 310 MG IM (09:36)
--- NOTE | 2025-03-03 09:45 | MHC.EDTECH ---
sandwich/ Irish given. pt took a sip. doesn't like it.
--- NOTE | 2025-03-03 10:06 | MHC.EDTECH ---
inpt phelb attempted to draw labs, was recommend to attempt later. pt upset wants phone/feels he has been lie to.
[2025-03-03 10:12] LABS: Resp Syncy Virus RNA Qual PCR NEGATIVE (Negative); SARS COV2 PCR INHOUSE NEGATIVE (Negative)
[2025-03-03] MEDS: Thiamine HCL 200 MG in 0.9 % Sodium Chloride 100 ML 204 MG IV ×2 (11:02→22:40)
--- NOTE | 2025-03-03 11:17 | PC.NURSE ---
came and pt had been calm but became agitated with her here, took his po meds but refused lovenox, pt paranoid and yelled at about forcing him here, will try again with lovenox
--- NOTE | 2025-03-03 11:54 | PHA.MEDREC ---
Addendum entered by Chase Felmdan PharmD 03/03/25 11:58: reviewed Original Note: Pharmacy Consult ? Medication Reconciliation Pharmacy has completed the medication reconciliation. spoke with pt this am and he was not cooperating or answering my questions about his medications. Went back a bit later to see if pt knew any of his meds and she was a poor historian with the pt meds but assured us the pt knows his medications. Spoke with pt again and pt was able to confirm what he is taking for medications, but took my claims history list and refused to give it back and it is now in the possession of the pt.
[2025-03-03 12:00] LABS: Hematocrit 40.8 % (42.0-52.0); Hemoglobin 13.7 g/dl (14.0-18.0); Mean Corpuscular HGB Conc 33.6 g/dl (31.0-36.0); Mean Corpuscular Hemoglobin 29.8 pg (27.0-33.0); Mean Corpuscular Volume 88.9 fL (80.0-98.0); NRBC Abs Auto 0.000 X10*3/uL (0.0-0.012); NRBC Pct Auto 0.0 /100WBC (0.0-0.2); Platelet Count 202 X10*3/uL (160-400); Red Blood Count 4.59 X10*6/uL (4.60-5.80); White Blood Count 5.3 X10*3/uL (4.8-10.8)
[2025-03-03 12:08] LABS: Ammonia 22 umol/L (13-55)
[2025-03-03] MEDS: PHENobarbitaL sodium 130 MG/ML VIAL IM Q3Hx2 230 MG IM ×2 (12:18→16:25)
[2025-03-03 12:22] LABS: Troponin-I High Sensitivity 17.3 ng/L (<3.5-35.0)
[2025-03-03 12:25] LABS: Alanine Aminotransferase 38 U/L (0-40); Albumin Level 3.6 g/dL (3.5-5.0); Alkaline Phosphatase 167 U/L (39-117); Anion Gap 11 (12-20); Aspartate Amino Transferase 50 U/L (5-37); Blood Urea Nitrogen 6 mg/dL (9-16); Calcium 9.0 mg/dL (8.4-10.2); Carbon Dioxide 29 mmol/L (22-29); Chloride 100 mmol/L (96-108); Creatinine Clr Calc Pharmacy 86.4; Estimated Glomerular Filt Rate > 60; Potassium 2.9 mmol/L (3.3-5.1); Sodium 137 mmol/L (135-145); Total Protein 6.7 g/dL (6.5-8.0)
[2025-03-03] MEDS: Potassium Chloride/H20 10 MEQ/100 ML PIGGYBACK 100 MEQ IV ×2 (13:30→15:03)
[2025-03-03 13:42] LABS: Magnesium 1.6 mg/dL (1.6-2.6)
[2025-03-03] MEDS: Metoprolol Tartrate 12.5 MG HALFTAB PO ×2 (14:55→19:59)
[2025-03-03] MEDS: dilTIAZem HCL CD 180 MG CAP.ER.24H 360 MG PO (14:55)
[2025-03-03] MEDS: 0.9 % Sodium Chloride Flush 3 ML SYRINGE IVFLUSH (17:16)
--- NOTE | 2025-03-03 19:44 | PC.NURSE ---
Addendum entered by Gardenia Santizo 03/03/25 20:48: Nayeli wilkinson in ed, spoke with him about patient incident earlier. states he will put in a PRN does of phenobarb if needed and patient will require a sitter. Original Note: patient bed alarm going off, patient was sitting at end of bed attempting to get up. 4 staff members attempting to redirect patient/help him to the commode. patient not following directions, was having liquid bowel movement and voiding while standing. patient began to slip in body fluids and was lowered to the floor. ED provider at bedside as well to assist. patient sat on floor and was cleaned up. placed back in bed with bed alarm on. patient will have camera placed in his room. hospital provider notified. no further orders at this time.
[2025-03-04] VITALS (7 sets, daily range): BP systolic 137–180; BP diastolic 69–93; PULSE 52–59; RESP 16–18; TEMP 35.9–36.5; O2SAT 92–100
[2025-03-04] MEDS: 0.9 % Sodium Chloride Flush 3 ML SYRINGE IVFLUSH ×4 (05:04→23:29)
[2025-03-04 07:59] LABS: Hematocrit 42.3 % (42.0-52.0); Hemoglobin 14.5 g/dl (14.0-18.0); Mean Corpuscular HGB Conc 34.3 g/dl (31.0-36.0); Mean Corpuscular Hemoglobin 30.0 pg (27.0-33.0); Mean Corpuscular Volume 87.6 fL (80.0-98.0); NRBC Abs Auto 0.000 X10*3/uL (0.0-0.012); NRBC Pct Auto 0.0 /100WBC (0.0-0.2); Platelet Count 227 X10*3/uL (160-400); Red Blood Count 4.83 X10*6/uL (4.60-5.80); White Blood Count 5.9 X10*3/uL (4.8-10.8)
[2025-03-04 08:23] LABS: Alanine Aminotransferase 32 U/L (0-40); Albumin Level 3.5 g/dL (3.5-5.0); Alkaline Phosphatase 149 U/L (39-117); Anion Gap 12 (12-20); Aspartate Amino Transferase 50 U/L (5-37); Blood Urea Nitrogen 5 mg/dL (9-16); Calcium 8.6 mg/dL (8.4-10.2); Carbon Dioxide 31 mmol/L (22-29); Chloride 96 mmol/L (96-108); Creatinine Clr Calc Pharmacy 79.5; Estimated Glomerular Filt Rate > 60; Magnesium 1.4 mg/dL (1.6-2.6); Potassium 2.9 mmol/L (3.3-5.1); Sodium 136 mmol/L (135-145); Total Protein 6.5 g/dL (6.5-8.0)
[2025-03-04] MEDS: dilTIAZem HCL CD 180 MG CAP.ER.24H 360 MG PO (08:49)
[2025-03-04] MEDS: Metoprolol Tartrate 12.5 MG HALFTAB PO (08:50)
[2025-03-04] MEDS: Potassium Chloride ER 20 MEQ TAB.ER.PRT 40 MEQ PO ×2 (08:50→20:29)
[2025-03-04] MEDS: Magnesium Sulfate/H2O 2 GM/50 ML PIGGYBACK IV (09:23)
--- NOTE | 2025-03-04 11:09 | HO.ADDICT_ITS ---
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 While in ED patient became agitated with VH, concern for alcohol withdrawal after patient reported drinking daily. Phenobarbital initiated and patient medically admitted Collateral obtained from is that patient drinks btwn 10-15 beers daily. Many years of drinking, which increased since fdc. Mass Pat reviewed and it seems patient has been prescribed Suboxone 8mg QD since at least December 2024. Prior to that monthly prescriptions for oxycodone. Suboxone has been ordered and administered this admission. Patient seen in room 473. He was laying flat in bed, eyes closed. Responded to voice, by shaking his head no when asked if he would be willing to answer some questions. Also nodded no when t/w offered to return at a later time. Eyes closed the entire time except for when t/w was observing him for tremor or other alcohol withdrawal sx. He did appear tremulous/twitchy, but would not bring his arms out from under the blanket. Resting tremor noted at admission. CIWA scores have been 2. Tolerating phenobarbital taper. Has not required any PRN doses due to agitation or any other withdrawal sx. Today labs showing low K (2.9) and Mg (1.4) --both repleted Medical Evaluation Reviewed: Yes Review of Systems Review of Systems Yes Unobtainable due to mental status (pt declining to speak to t/w) Diagnostics Vital Signs (24Hr): Vital Signs - 24 hr 03/03/25 12:15 03/03/25 14:47 03/03/25 14:55 Temperature Pulse Rate 80 79 Respiratory Rate 19 18 Blood Pressure 181/90 H 182/105 H 182/105 H Pulse Oximetry 97 98 Oxygen Delivery Method 03/03/25 14:55 03/03/25 16:30 03/03/25 18:00 Temperature 98.2 F Pulse Rate 79 63 62 Respiratory Rate 18 18 Blood Pressure 182/105 H 176/93 H 177/84 H Pulse Oximetry 98 95 Oxygen Delivery Method Room Air 03/03/25 20:01 03/03/25 22:23 03/04/25 03:11 Temperature 96.6 F L 96.8 F Pulse Rate 56 52 56 Respiratory Rate 12 18 18 Blood Pressure 183/105 H 182/96 H 180/93 H Pulse Oximetry 97 96 92 Oxygen Delivery Method Room Air Room Air Room Air 03/04/25 06:21 03/04/25 07:34 Temperature 97.7 F Pulse Rate 55 Respiratory Rate 16 Blood Pressure 168/80 H 151/77 H Pulse Oximetry 98 Oxygen Delivery Method Room Air BMI result Body Mass Index 19.4 Labs 03/04/25 07:31 03/04/25 07:31 Labs: Laboratory Results - last 48 hr 03/02/25 03/02/25 03/02/25 15:46 16:18 17:59 WBC 6.2 RBC 4.48 L Hgb 13.4 L Hct 39.8 L MCV 88.8 MCH 29.9 MCHC 33.7 RDW 13.3 Plt Count 275 MPV 8.9 L Immature Gran % (Auto) 0.3 Neut % (Auto) 71.5 Lymph % (Auto) 16.5 L [place] % (Auto) 7.2 Eos % (Auto) 3.7 Baso % (Auto) 0.8 Lymph # (Auto) 1.0 L [place] # (Auto) 0.5 Eos # (Auto) 0.2 Baso # (Auto) 0.1 Abs Immat Gran (auto) 0.02 Absolute Neuts (auto) 4.5 Absolute Nucleated RBC 0.000 Nucleated RBC % (auto) 0.0 Sodium 138 Potassium 3.2 L Chloride 100 Carbon Dioxide 27 Anion Gap 14 BUN 8 L Creatinine 1.30 Estim Creat Clear Calc 54.5 Estimated GFR 55 Random Glucose 112 Calcium 9.3 Magnesium 1.3 L* Iron 176 H TIBC 245 % Saturation 72 H Unsat Iron Binding 69 Total Bilirubin 1.9 H AST 79 H ALT 46 H Alkaline Phosphatase 206 H Ammonia Troponin I High Sens 25.0 Total Protein 7.4 Albumin 4.1 Urine Color Yellow Urine Appearance Clear Urine pH 5.5 Ur Specific [place] 1.015 Urine Protein Trace Urine Glucose (UA) Negative Urine Ketones Trace Urine Blood Negative Urine Nitrite Negative Ur Leukocyte Esterase Trace H Urine RBC 0-2 Urine WBC 0-5 Ur Squamous Epith Cells 0-2 Urine Bacteria None Seen Hyaline Casts 3-5 Ethyl Alcohol < 10 Influenza Type A (PCR) Influenza Type B (PCR) RSV RNA Qual (PCR) SARS-CoV-2 RNA (RT-PCR) 03/03/25 03/03/25 03/03/25 09:14 11:54 11:55 WBC 5.3 RBC 4.59 L Hgb 13.7 L Hct 40.8 L MCV 88.9 MCH 29.8 MCHC 33.6 RDW 13.4 Plt Count 202 D MPV 8.9 L Immature Gran % (Auto) Neut % (Auto) Lymph % (Auto) [place] % (Auto) Eos % (Auto) Baso % (Auto) Lymph # (Auto) [place] # (Auto) Eos # (Auto) Baso # (Auto) Abs Immat Gran (auto) Absolute Neuts (auto) Absolute Nucleated RBC 0.000 Nucleated RBC % (auto) 0.0 Sodium 137 Potassium 2.9 L* Chloride 100 Carbon Dioxide 29 Anion Gap 11 L BUN 6 L Creatinine 0.82 Estim Creat Clear Calc 86.4 Estimated GFR > 60 Random Glucose 86 Calcium 9.0 Magnesium 1.6 Iron TIBC % Saturation Unsat Iron Binding Total Bilirubin 1.3 H AST 50 H ALT 38 Alkaline Phosphatase 167 H Ammonia 22 Troponin I High Sens 17.3 Total Protein 6.7 Albumin 3.6 Urine Color Urine Appearance Urine pH Ur Specific [place] Urine Protein Urine Glucose (UA) Urine Ketones Urine Blood Urine Nitrite Ur Leukocyte Esterase Urine RBC Urine WBC Ur Squamous Epith Cells Urine Bacteria Hyaline Casts Ethyl Alcohol Influenza Type A (PCR) NEGATIVE Influenza Type B (PCR) NEGATIVE RSV RNA Qual (PCR) NEGATIVE SARS-CoV-2 RNA (RT-PCR) NEGATIVE 03/04/25 07:31 WBC 5.9 RBC 4.83 Hgb 14.5 Hct 42.3 MCV 87.6 MCH 30.0 MCHC 34.3 RDW 13.3 Plt Count 227 MPV 9.1 L Immature Gran % (Auto) Neut % (Auto) Lymph % (Auto) [place] % (Auto) Eos % (Auto) Baso % (Auto) Lymph # (Auto) [place] # (Auto) Eos # (Auto) Baso # (Auto) Abs Immat Gran (auto) Absolute Neuts (auto) Absolute Nucleated RBC 0.000 Nucleated RBC % (auto) 0.0 Sodium 136 Potassium 2.9 L* Chloride 96 Carbon Dioxide 31 H Anion Gap 12 BUN 5 L Creatinine 0.84 Estim Creat Clear Calc 79.5 Estimated GFR > 60 Random Glucose 85 Calcium 8.6 Magnesium 1.4 L* Iron TIBC % Saturation Unsat Iron Binding Total Bilirubin 1.3 H AST 50 H ALT 32 Alkaline Phosphatase 149 H Ammonia Troponin I High Sens Total Protein 6.5 Albumin 3.5 Urine Color Urine Appearance Urine pH Ur Specific [place] Urine Protein Urine Glucose (UA) Urine Ketones Urine Blood Urine Nitrite Ur Leukocyte Esterase Urine RBC Urine WBC Ur Squamous Epith Cells Urine Bacteria Hyaline Casts Ethyl Alcohol Influenza Type A (PCR) Influenza Type B (PCR) RSV RNA Qual (PCR) SARS-CoV-2 RNA (RT-PCR) Mental Status Exam Mental Status Exam Patient Behavior: Avoidant (eyes closed) and Uncooperative Affect Description: Flat Medications Medications Current Medications Acetaminophen (Acetaminophen 325 Mg Tablet) 650 mg PO Q6H PRN PRN Reason: Pain, Mild 1-3,fever,headache Buprenorphine/Naloxone (Buprenorphine/Naloxone 8/2 Mg Film) 1 film SUBLINGUAL DAILY [facility] Last Admin: 03/04/25 09:01 Dose: 1 film Calcium Carbonate (Calcium Carbonate 750 Mg Tab.Chew) 750 mg PO Q4H PRN PRN Reason: Heartburn Diltiazem HCl (Diltiazem Hcl Cd 180 Mg Cap.Er.24h) 360 mg PO DAILY [facility]; Protocol Last Admin: 03/04/25 08:49 Dose: 360 mg Duloxetine HCl (Duloxetine Hcl 30 Mg Capsule.Dr) 30 mg PO BID [facility] Last Admin: 03/04/25 08:50 Dose: 30 mg Enoxaparin Sodium (Enoxaparin Sodium 40 Mg/0.4 Ml Syringe) 40 mg SUBCUT Q24H [facility] Last Admin: 03/03/25 12:11 Dose: 40 mg Famotidine (Famotidine 20 Mg Tablet) 20 mg PO BID [facility] Last Admin: 03/04/25 08:51 Dose: 20 mg Folic Acid (Folic Acid 1 Mg Tablet) 1 mg PO DAILY [facility] Stop: 03/06/25 10:39 Last Admin: 03/04/25 08:49 Dose: 1 mg Gabapentin (Gabapentin 400 Mg Capsule) 400 mg PO DAILY [facility] Last Admin: 03/04/25 08:45 Dose: 400 mg Gabapentin (Gabapentin 400 Mg Capsule) 800 mg PO BID [facility] Last Admin: 03/04/25 08:45 Dose: 800 mg Hydralazine HCl (Hydralazine Hcl 20 Mg/Ml Vial) 5 mg IVPUSH Q6H PRN; Protocol PRN Reason: SBP >170 Last Admin: 03/04/25 03:28 Dose: 5 mg Thiamine HCl 200 mg/ Sodium (Chloride) 102 mls @ 204 mls/hr IV Q12H [facility] Stop: 03/04/25 23:29 Last Infusion: 03/04/25 00:19 Dose: Infused Ibuprofen (Ibuprofen 600 Mg Tablet) 600 mg PO TID [facility] Last Admin: 03/04/25 08:47 Dose: 600 mg Lisinopril (Lisinopril 40 Mg Tablet) 40 mg PO DAILY [facility]; Protocol Last Admin: 03/04/25 08:48 Dose: 40 mg Magnesium Hydroxide (Milk Of Magnesia 30 Ml Oral.Susp) 30 ml PO DAILY PRN PRN Reason: Constipation Metoprolol Tartrate (Metoprolol Tartrate 12.5 Mg Halftab) 12.5 mg PO BID [facility]; Protocol Last Admin: 03/04/25 08:50 Dose: 12.5 mg Multivitamins/Vitamin C (Multivitamin Tablet) 1 tab PO DAILY [facility] Stop: 03/06/25 10:39 Last Admin: 03/04/25 08:49 Dose: 1 tab Omeprazole (Omeprazole 20 Mg Capsule.Dr) 20 mg PO DAILY [facility] Last Admin: 03/04/25 08:48 Dose: 20 mg Ondansetron HCl (Ondansetron Odt 8 Mg Tab.Rapdis) 8 mg TRANSLINGU Q8H PRN PRN Reason: Nausea and Vomiting Pharmacy Consult (Consult Rx Etoh Phenob Im/Po) 1 each MISCELLANE ONCE PRN; Protocol PRN Reason: Consult order Phenobarbital (Phenobarbital 30 Mg Tablet) 60 mg PO BID [facility] Stop: 03/05/25 09:01 Last Admin: 03/04/25 08:47 Dose: 60 mg Phenobarbital (Phenobarbital 30 Mg Tablet) 30 mg PO BID [facility] Stop: 03/07/25 09:01 Phenobarbital (Phenobarbital 30 Mg Tablet) 30 mg PO BEDTIME [facility] Stop: 03/08/25 21:01 Phenobarbital Sodium (Phenobarbital Sodium 130 Mg/Ml Vial) 130 mg IM Q6H PRN PRN Reason: CIWA >12 Potassium Chloride (Potassium Chloride Er 20 Meq Tab.Er.Prt) 40 meq PO BID [facility] Stop: 03/04/25 21:01 Last Admin: 03/04/25 08:50 Dose: 40 meq Sodium Chloride (0.9 % Sodium Chloride Flush 3 Ml Syringe) 3 ml IVFLUSH QSHIFT [facility] Last Admin: 03/04/25 08:52 Dose: 3 ml Thiamine HCl (Thiamine Hcl 100 Mg Tablet) 100 mg PO DAILY [facility] Stop: 03/09/25 08:59 Tizanidine HCl (Tizanidine Hcl 4 Mg Tablet) 4 mg PO BID PRN PRN Reason: Muscle Spasm Valacyclovir HCl (Valacyclovir Hcl 1,000 Mg Tablet) 2,000 mg PO Q12H PRN PRN Reason: Outbreak Allergies Allergies Allergy/AdvReac Type Severity Reaction Status Date / Time Sulfa (Sulfonamide Allergy Rash Verified 03/02/25 15:37 Antibiotics) Assessment & Plan Assessment & Plan (1) Alcohol withdrawal: Status: Acute Code(s): F10.939 - Alcohol use, unspecified with withdrawal, unspecified Assessment and Plan: * phenobarbital taper and IV thiamine in place * unable to obtain any history or discuss any goals moving forward * will attempt to check back in later this week to see if patient is more amenable to talking about alcohol use then Total time managing care of this patient today ____ minutes. PMFSH Past Medical History Medical History Hypertension Social History Social History Household Members: Spouse Housing: House Do you presently have visiting nurse or other home services: No Alcohol intake: current Alcohol intake frequency: 3 or more drinks per day Alcohol type: beer Patient Tobacco Use Status: Never used Tobacco Smoked in Last 30 Days: No Use of substances other than those prescribed or required for medical reasons: No Currently Displaying Signs/Symptoms of Drug Intoxication Withdrawal: No Have you been hit, kicked, punched, or otherwise hurt by someone within the past year? If so, by whom?: No Do you feel safe in your current relationship?: Yes Is there a partner from a previous relationship who is making you feel unsafe now?: No Are you made to feel afraid or neglected: No Advance Directives: No Advance Directives Information Provided: No Do you have a plan to hurt others: No Plan Recently lost weight without trying: No Eating poorly because of decreased appetite: No Nutrition Risks: No Nutritional Risk Poor oral hygiene: No service: No
[2025-03-04] MEDS: Thiamine HCL 200 MG in 0.9 % Sodium Chloride 100 ML 204 MG IV ×2 (12:02→23:27)
--- NOTE | 2025-03-04 13:42 | MHC.CM.PN ---
IMM 03/04/25, Pt. lives with his , PCP is: [facility]. at [facility]. HCP discussed, he will complete the form here and it will be added to chart. Pt. does not use home health services, he has a cane and walker at home, but does not need to use them. can transport home at DC, DCP: home, self care, CM to follow for DC needs.
--- NOTE | 2025-03-04 21:55 | HO.PM.IMPN ---
Subjective Subjective Date of Service: 03/04/25 Interval History: f/u on acue metabolic encephalopathy, HTN urgency, alcohol withdrawal seemed less confused today and minimal tremors, had urine retention but was ultimately able to void Physical Exam Vital Signs: Vital Signs: Last Vital Signs Temp 97.2 F 03/04/25 19:52 Pulse 56 03/04/25 19:52 Resp 16 03/04/25 19:52 BP 159/78 H 03/04/25 19:52 Pulse Ox 100 03/04/25 19:52 O2 Del Method Room Air 03/04/25 19:52 BMI result Body Mass Index 19.4 Objective Data Active Medications Acetaminophen (Acetaminophen 325 Mg Tablet) 650 mg PO Q6H PRN PRN Reason: Pain, Mild 1-3,fever,headache Buprenorphine/Naloxone (Buprenorphine/Naloxone 8/2 Mg Film) 1 film SUBLINGUAL DAILY [facility] Last Admin: 03/04/25 09:01 Dose: 1 film Documented By: CORY Calcium Carbonate (Calcium Carbonate 750 Mg Tab.Chew) 750 mg PO Q4H PRN PRN Reason: Heartburn Diltiazem HCl (Diltiazem Hcl Cd 180 Mg Cap.Er.24h) 360 mg PO DAILY [facility]; Protocol Last Admin: 03/04/25 08:49 Dose: 360 mg Documented By: CORY Duloxetine HCl (Duloxetine Hcl 30 Mg Capsule.Dr) 30 mg PO BID [facility] Last Admin: 03/04/25 20:28 Dose: 30 mg Documented By: NESHA Enoxaparin Sodium (Enoxaparin Sodium 40 Mg/0.4 Ml Syringe) 40 mg SUBCUT Q24H [facility] Last Admin: 03/04/25 12:03 Dose: 40 mg Documented By: CORY Famotidine (Famotidine 20 Mg Tablet) 20 mg PO BID [facility] Last Admin: 03/04/25 20:29 Dose: 20 mg Documented By: NESHA Folic Acid (Folic Acid 1 Mg Tablet) 1 mg PO DAILY [facility] Stop: 03/06/25 10:39 Last Admin: 03/04/25 08:49 Dose: 1 mg Documented By: CORY Gabapentin (Gabapentin 400 Mg Capsule) 400 mg PO DAILY [facility] Last Admin: 03/04/25 08:45 Dose: 400 mg Documented By: CORY Gabapentin (Gabapentin 400 Mg Capsule) 800 mg PO BID [facility] Last Admin: 03/04/25 20:28 Dose: 800 mg Documented By: NESHA Hydralazine HCl (Hydralazine Hcl 20 Mg/Ml Vial) 5 mg IVPUSH Q6H PRN; Protocol PRN Reason: SBP >170 Last Admin: 03/04/25 03:28 Dose: 5 mg Documented By: BRANDEE Thiamine HCl 200 mg/ Sodium (Chloride) 102 mls @ 204 mls/hr IV Q12H [facility] Stop: 03/04/25 23:29 Last Infusion: 03/04/25 12:58 Dose: Infused Documented By: CORY Ibuprofen (Ibuprofen 600 Mg Tablet) 600 mg PO TID [facility] Last Admin: 03/04/25 20:30 Dose: 600 mg Documented By: NESHA Lisinopril (Lisinopril 40 Mg Tablet) 40 mg PO DAILY [facility]; Protocol Last Admin: 03/04/25 08:48 Dose: 40 mg Documented By: CORY Magnesium Hydroxide (Milk Of Magnesia 30 Ml Oral.Susp) 30 ml PO DAILY PRN PRN Reason: Constipation Metoprolol Tartrate (Metoprolol Tartrate 12.5 Mg Halftab) 12.5 mg PO BID [facility]; Protocol Last Admin: 03/04/25 08:50 Dose: 12.5 mg Documented By: CORY Multivitamins/Vitamin C (Multivitamin Tablet) 1 tab PO DAILY [facility] Stop: 03/06/25 10:39 Last Admin: 03/04/25 08:49 Dose: 1 tab Documented By: CORY Omeprazole (Omeprazole 20 Mg Capsule.Dr) 20 mg PO DAILY [facility] Last Admin: 03/04/25 08:48 Dose: 20 mg Documented By: CORY Ondansetron HCl (Ondansetron Odt 8 Mg Tab.Rapdis) 8 mg TRANSLINGU Q8H PRN PRN Reason: Nausea and Vomiting Pharmacy Consult (Consult Rx Etoh Phenob Im/Po) 1 each MISCELLANE ONCE PRN; Protocol PRN Reason: Consult order Phenobarbital (Phenobarbital 30 Mg Tablet) 60 mg PO BID [facility] Stop: 03/05/25 09:01 Last Admin: 03/04/25 20:29 Dose: 60 mg Documented By: NESHA Phenobarbital (Phenobarbital 30 Mg Tablet) 30 mg PO BID [facility] Stop: 03/07/25 09:01 Phenobarbital (Phenobarbital 30 Mg Tablet) 30 mg PO BEDTIME [facility] Stop: 03/08/25 21:01 Phenobarbital Sodium (Phenobarbital Sodium 130 Mg/Ml Vial) 130 mg IM Q6H PRN PRN Reason: CIWA >12 Sodium Chloride (0.9 % Sodium Chloride Flush 3 Ml Syringe) 3 ml IVFLUSH QSHIFT [facility] Last Admin: 03/04/25 16:23 Dose: 3 ml Documented By: CORY Thiamine HCl (Thiamine Hcl 100 Mg Tablet) 100 mg PO DAILY [facility] Stop: 03/09/25 08:59 Tizanidine HCl (Tizanidine Hcl 4 Mg Tablet) 4 mg PO BID PRN PRN Reason: Muscle Spasm Valacyclovir HCl (Valacyclovir Hcl 1,000 Mg Tablet) 2,000 mg PO Q12H PRN PRN Reason: Outbreak Labs 03/04/25 07:31 03/04/25 07:31 Labs: Laboratory Results - last 24 hr 03/04/25 07:31 MCV 87.6 MCH 30.0 MCHC 34.3 RDW 13.3 Plt Count 227 MPV 9.1 L Absolute Nucleated RBC 0.000 Nucleated RBC % (auto) 0.0 Anion Gap 12 Estim Creat Clear Calc 79.5 Estimated GFR > 60 Random Glucose 85 Calcium 8.6 Magnesium 1.4 L* Total Bilirubin 1.3 H AST 50 H ALT 32 Alkaline Phosphatase 149 H Total Protein 6.5 Albumin 3.5 Assessment and Plan (1) Alcohol withdrawal: Status: Acute (2) Tremor: Status: Acute Plan Pt is a 64-year-old male with a PMH significant for HTN,?GERD who initially presented yesterday on 03/02 to the ED after fall at home with head strike and laceration to the right scalp. He then asks me to make sure I remember to bring him the keys when I come back to see him. Acute encephalopathy,improved Concerning for acute alcohol withdrawal reports pt drinks around 10-15 beers daily Tremulous, confused, hallucinating, agitated and combative Continue Phenobarb protocol Daily multivitamin, folic acid Thiamine 200mg IV bid x2 days, p.o. after than Follow lychanell, Mag, BMP CIWA scale Addiction medicine consult Monitor on telemetry Hypertensive urgency, improved, and likely related to etohw withdrawal BP as high as 209/101 Continue diltiazem, lisinopril, metoprolol Hydralazine 5 mg IV p.r.n. for SBP >170 Follow BP closely Fall at home S/p 5 mauro to close right scalp laceration, nondisplaced fractures of left 8th and 9th ribs posteriorly PT recommending STR upon discharge Neuropathy Continue gabapentin GERD Continue omeprazole Mood disorder Continue duloxetine Full Code Attending:?Dr. Aquino DVT Prophylaxis: [employer] Stroke Does the patient have a stroke diagnosis?: No VTE Prior VTE?: No VTE Risk Level:: Medical - moderate - high VTE Device Contraindication: Treatment Not Indicated VTE Drug Contraindication: N/A - Med Ordered
[2025-03-05] VITALS (7 sets, daily range): BP systolic 130–151; BP diastolic 69–79; PULSE 53–71; RESP 18–20; TEMP 35.9–37.7; O2SAT 95–97
[2025-03-05] MEDS: Metoprolol Tartrate 12.5 MG HALFTAB PO ×2 (08:49→22:11)
[2025-03-05] MEDS: dilTIAZem HCL CD 180 MG CAP.ER.24H 360 MG PO (08:50)
[2025-03-05] MEDS: 0.9 % Sodium Chloride Flush 3 ML SYRINGE IVFLUSH ×3 (08:52→22:12)
--- NOTE | 2025-03-05 12:53 | P.PNIM_ITS ---
Subjective Subjective Date of Service: 03/05/25 Interval History: f/u on acue metabolic encephalopathy, HTN urgency, alcohol withdrawal Still has sings of withdrawal, less confused Physical Exam 2 Vital Signs: Vital Signs: Last Vital Signs Temp 97.9 F 03/05/25 11:01 Pulse 65 03/05/25 11:41 Resp 20 03/05/25 11:01 BP 138/79 03/05/25 11:41 Pulse Ox 95 03/05/25 11:41 O2 Del Method Room Air 03/05/25 11:01 BMI result Body Mass Index 19.4 Const: Other: General: oriented to self and place, no acute distress Resp: CTA bilateral CVS: S1,S2,RRR GI: +BS, NT, no distention Skin: No rash Neuro: motor grossly intact Psych: appropriate affect Objective Data Active Medications Acetaminophen (Acetaminophen 325 Mg Tablet) 650 mg PO Q6H PRN PRN Reason: Pain, Mild 1-3,fever,headache Buprenorphine/Naloxone (Buprenorphine/Naloxone 8/2 Mg Film) 1 film SUBLINGUAL DAILY [facility] Last Admin: 03/05/25 08:52 Dose: 1 film Documented By: WAYLON Calcium Carbonate (Calcium Carbonate 750 Mg Tab.Chew) 750 mg PO Q4H PRN PRN Reason: Heartburn Diltiazem HCl (Diltiazem Hcl Cd 180 Mg Cap.Er.24h) 360 mg PO DAILY [facility]; Protocol Last Admin: 03/05/25 08:50 Dose: 360 mg Documented By: WAYLON Duloxetine HCl (Duloxetine Hcl 30 Mg Capsule.Dr) 30 mg PO BID [facility] Last Admin: 03/05/25 08:48 Dose: 30 mg Documented By: WAYLON Enoxaparin Sodium (Enoxaparin Sodium 40 Mg/0.4 Ml Syringe) 40 mg SUBCUT Q24H [facility] Last Admin: 03/04/25 12:03 Dose: 40 mg Documented By: CORY Famotidine (Famotidine 20 Mg Tablet) 20 mg PO BID [facility] Last Admin: 03/05/25 08:49 Dose: 20 mg Documented By: WAYLON Folic Acid (Folic Acid 1 Mg Tablet) 1 mg PO DAILY [facility] Stop: 03/06/25 10:39 Last Admin: 03/05/25 08:52 Dose: 1 mg Documented By: WAYLON Gabapentin (Gabapentin 400 Mg Capsule) 400 mg PO DAILY [facility] Last Admin: 03/05/25 08:47 Dose: 400 mg Documented By: WAYLON Gabapentin (Gabapentin 400 Mg Capsule) 800 mg PO BID [facility] Last Admin: 03/05/25 08:48 Dose: 800 mg Documented By: WAYLON Hydralazine HCl (Hydralazine Hcl 20 Mg/Ml Vial) 5 mg IVPUSH Q6H PRN; Protocol PRN Reason: SBP >170 Last Admin: 03/04/25 03:28 Dose: 5 mg Documented By: BRANDEE Ibuprofen (Ibuprofen 600 Mg Tablet) 600 mg PO TID [facility] Last Admin: 03/05/25 08:51 Dose: 600 mg Documented By: WAYLON Lisinopril (Lisinopril 40 Mg Tablet) 40 mg PO DAILY [facility]; Protocol Last Admin: 03/05/25 08:51 Dose: 40 mg Documented By: WAYLON Magnesium Hydroxide (Milk Of Magnesia 30 Ml Oral.Susp) 30 ml PO DAILY PRN PRN Reason: Constipation Metoprolol Tartrate (Metoprolol Tartrate 12.5 Mg Halftab) 12.5 mg PO BID [facility]; Protocol Last Admin: 03/05/25 08:49 Dose: 12.5 mg Documented By: WAYLON Multivitamins/Vitamin C (Multivitamin Tablet) 1 tab PO DAILY [facility] Stop: 03/06/25 10:39 Last Admin: 03/05/25 08:50 Dose: 1 tab Documented By: WAYLON Omeprazole (Omeprazole 20 Mg Capsule.Dr) 20 mg PO DAILY [facility] Last Admin: 03/05/25 08:49 Dose: 20 mg Documented By: WAYLON Ondansetron HCl (Ondansetron Odt 8 Mg Tab.Rapdis) 8 mg TRANSLINGU Q8H PRN PRN Reason: Nausea and Vomiting Pharmacy Consult (Consult Rx Etoh Phenob Im/Po) 1 each MISCELLANE ONCE PRN; Protocol PRN Reason: Consult order Phenobarbital (Phenobarbital 30 Mg Tablet) 30 mg PO BID [facility] Stop: 03/07/25 09:01 Phenobarbital (Phenobarbital 30 Mg Tablet) 30 mg PO BEDTIME [facility] Stop: 03/08/25 21:01 Phenobarbital Sodium (Phenobarbital Sodium 130 Mg/Ml Vial) 130 mg IM Q6H PRN PRN Reason: CIWA >12 Sodium Chloride (0.9 % Sodium Chloride Flush 3 Ml Syringe) 3 ml IVFLUSH QSHIFT [facility] Last Admin: 03/05/25 08:52 Dose: 3 ml Documented By: WAYLON Thiamine HCl (Thiamine Hcl 100 Mg Tablet) 100 mg PO DAILY [facility] Stop: 03/09/25 08:59 Tizanidine HCl (Tizanidine Hcl 4 Mg Tablet) 4 mg PO BID PRN PRN Reason: Muscle Spasm Valacyclovir HCl (Valacyclovir Hcl 1,000 Mg Tablet) 2,000 mg PO Q12H PRN PRN Reason: Outbreak Labs 03/04/25 07:31 03/04/25 07:31 Labs: Laboratory Results - last 24 hr 03/04/25 07:31 MCV 87.6 MCH 30.0 MCHC 34.3 RDW 13.3 Plt Count 227 MPV 9.1 L Absolute Nucleated RBC 0.000 Nucleated RBC % (auto) 0.0 Anion Gap 12 Estim Creat Clear Calc 79.5 Estimated GFR > 60 Random Glucose 85 Calcium 8.6 Magnesium 1.4 L* Total Bilirubin 1.3 H AST 50 H ALT 32 Alkaline Phosphatase 149 H Total Protein 6.5 Albumin 3.5 Assessment and Plan (1) Alcohol withdrawal: Status: Acute (2) Tremor: Status: Acute Plan Pt is a 64-year-old male with a PMH significant for HTN,?GERD who initially presented yesterday on 03/02 to the ED after fall at home with head strike and laceration to the right scalp. He then asks me to make sure I remember to bring him the keys when I come back to see him. Acute encephalopathy,improved Concerning for acute alcohol withdrawal reports pt drinks around 10-15 beers daily Tremulous, confused, hallucinating, agitated and combative Continue Phenobarb protocol Daily multivitamin, folic acid Thiamine 200mg IV bid x2 days, p.o. after than Follow Mag tiny, BMP CIWA scale Addiction medicine consult Monitor on telemetry check electrolytes Hypertensive urgency, improved, and likely related to etohw withdrawal, BP is now normal BP as high as 209/101 Continue diltiazem, lisinopril, metoprolol Hydralazine 5 mg IV p.r.n. for SBP >170 Follow BP closely Fall at home S/p 5 mauro to close right scalp laceration, nondisplaced fractures of left 8th and 9th ribs posteriorly PT recommending STR upon discharge Neuropathy Continue gabapentin GERD Continue omeprazole Mood disorder Continue duloxetine Full Code Attending:?Dr. Aquino DVT Prophylaxis: [employer] Stroke Does the patient have a stroke diagnosis?: No VTE Prior VTE?: No VTE Risk Level:: Medical - moderate - high VTE Device Contraindication: Treatment Not Indicated VTE Drug Contraindication: N/A - Med Ordered
--- NOTE | 2025-03-05 14:53 | MHC.CM.PN ---
Per rounds, pt. still showing sx of W/D. not yet ready to DC.
[2025-03-06 04:00] VITALS: BP 144/80; PULSE 72; RESP 18; TEMP 36.9; O2SAT 97
[2025-03-06 07:15] VITALS: BP 129/81; PULSE 75; RESP 20; TEMP 37.2; O2SAT 96
[2025-03-06 11:18] VITALS: BP 131/79; PULSE 82; RESP 18; TEMP 37.1; O2SAT 96
[2025-03-06] MEDS: Metoprolol Tartrate 12.5 MG HALFTAB PO ×2 (11:29→20:15)
[2025-03-06] MEDS: dilTIAZem HCL CD 180 MG CAP.ER.24H 360 MG PO (11:30)
[2025-03-06] MEDS: 0.9 % Sodium Chloride Flush 3 ML SYRINGE IVFLUSH (11:31)
[2025-03-06 12:08] LABS: Hematocrit 44.0 % (42.0-52.0); Hemoglobin 14.3 g/dl (14.0-18.0); Mean Corpuscular HGB Conc 32.5 g/dl (31.0-36.0); Mean Corpuscular Hemoglobin 29.5 pg (27.0-33.0); Mean Corpuscular Volume 90.7 fL (80.0-98.0); NRBC Abs Auto 0.000 X10*3/uL (0.0-0.012); NRBC Pct Auto 0.0 /100WBC (0.0-0.2); Platelet Count 234 X10*3/uL (160-400); Red Blood Count 4.85 X10*6/uL (4.60-5.80); White Blood Count 7.6 X10*3/uL (4.8-10.8)
[2025-03-06 12:17] LABS: Ammonia 31 umol/L (13-55)
[2025-03-06] MEDS: Magnesium Sulfate/H2O 2 GM/50 ML PIGGYBACK IV (12:21)
[2025-03-06 12:24] LABS: Anion Gap 13 (12-20); Blood Urea Nitrogen 13 mg/dL (9-16); Calcium 9.0 mg/dL (8.4-10.2); Carbon Dioxide 26 mmol/L (22-29); Chloride 101 mmol/L (96-108); Creatinine Clr Calc Pharmacy 53.4; Estimated Glomerular Filt Rate 58; Magnesium 1.7 mg/dL (1.6-2.6); Potassium 3.7 mmol/L (3.3-5.1); Sodium 136 mmol/L (135-145)
--- NOTE | 2025-03-06 12:51 | HO.PM.IMPN ---
Subjective Subjective Date of Service: 03/06/25 Interval History: Patient has been very somnolent, phenobarbital held since yesterday. He is more awake and alert today, but still confused, but no more tremors. According to , he was very unsteady and tremulous and confused before coming, Physical Exam Vital Signs: Vital Signs: Last Vital Signs Temp 98.7 F 03/06/25 11:18 Pulse 82 03/06/25 11:18 Resp 18 03/06/25 11:18 BP 131/79 03/06/25 11:18 Pulse Ox 96 03/06/25 11:18 O2 Del Method Room Air 03/06/25 11:18 BMI result Body Mass Index 19.4 Const: Other: General: oriented to self and place, no acute distress Resp: CTA bilateral CVS: S1,S2,RRR GI: +BS, NT, no distention Skin: No rash Neuro: motor grossly intact Psych: appropriate affect Objective Data Active Medications Acetaminophen (Acetaminophen 325 Mg Tablet) 650 mg PO Q6H PRN PRN Reason: Pain, Mild 1-3,fever,headache Buprenorphine/Naloxone (Buprenorphine/Naloxone 8/2 Mg Film) 1 film SUBLINGUAL DAILY [facility] Last Admin: 03/06/25 11:30 Dose: 1 film Documented By: CECILIA Calcium Carbonate (Calcium Carbonate 750 Mg Tab.Chew) 750 mg PO Q4H PRN PRN Reason: Heartburn Diltiazem HCl (Diltiazem Hcl Cd 180 Mg Cap.Er.24h) 360 mg PO DAILY [facility]; Protocol Last Admin: 03/06/25 11:30 Dose: 360 mg Documented By: CECILIA Duloxetine HCl (Duloxetine Hcl 30 Mg Capsule.Dr) 30 mg PO BID [facility] Last Admin: 03/06/25 11:38 Dose: Not Given Documented By: CECILIA Non-Admin Reason: Physician Approved Enoxaparin Sodium (Enoxaparin Sodium 40 Mg/0.4 Ml Syringe) 40 mg SUBCUT Q24H [facility] Last Admin: 03/06/25 11:31 Dose: 40 mg Documented By: CECILIA Famotidine (Famotidine 20 Mg Tablet) 20 mg PO BID [facility] Last Admin: 03/06/25 11:29 Dose: 20 mg Documented By: CECILIA Gabapentin (Gabapentin 400 Mg Capsule) 400 mg PO DAILY [facility] Last Admin: 03/06/25 11:38 Dose: Not Given Documented By: CECILIA Non-Admin Reason: Physician Approved Gabapentin (Gabapentin 400 Mg Capsule) 800 mg PO BID [facility] Last Admin: 03/06/25 11:38 Dose: Not Given Documented By: CECILIA Non-Admin Reason: Physician Approved Hydralazine HCl (Hydralazine Hcl 20 Mg/Ml Vial) 5 mg IVPUSH Q6H PRN; Protocol PRN Reason: SBP >170 Last Admin: 03/04/25 03:28 Dose: 5 mg Documented By: BRANDEE Magnesium Sulfate (Magnesium Sulfate/H2o) 2 gm in 50 mls @ 25 mls/hr IV ONCE ONE Stop: 03/06/25 13:52 Last Admin: 03/06/25 12:21 Dose: 25 mls/hr Documented By: ALEJANDRA Ibuprofen (Ibuprofen 600 Mg Tablet) 600 mg PO TID [facility] Last Admin: 03/06/25 11:30 Dose: 600 mg Documented By: CECILIA Lisinopril (Lisinopril 40 Mg Tablet) 40 mg PO DAILY [facility]; Protocol Last Admin: 03/06/25 11:29 Dose: 40 mg Documented By: CECILIA Magnesium Hydroxide (Milk Of Magnesia 30 Ml Oral.Susp) 30 ml PO DAILY PRN PRN Reason: Constipation Metoprolol Tartrate (Metoprolol Tartrate 12.5 Mg Halftab) 12.5 mg PO BID [facility]; Protocol Last Admin: 03/06/25 11:29 Dose: 12.5 mg Documented By: CECILIA Omeprazole (Omeprazole 20 Mg Capsule.Dr) 20 mg PO DAILY [facility] Last Admin: 03/06/25 11:29 Dose: 20 mg Documented By: CECILIA Ondansetron HCl (Ondansetron Odt 8 Mg Tab.Rapdis) 8 mg TRANSLINGU Q8H PRN PRN Reason: Nausea and Vomiting Pharmacy Consult (Consult Rx Etoh Phenob Im/Po) 1 each MISCELLANE ONCE PRN; Protocol PRN Reason: Consult order Phenobarbital (Phenobarbital 30 Mg Tablet) 30 mg PO BID [facility] Stop: 03/07/25 09:01 Last Admin: 03/06/25 11:31 Dose: Not Given Documented By: CECILIA Non-Admin Reason: Physician Held Med Phenobarbital (Phenobarbital 30 Mg Tablet) 30 mg PO BEDTIME [facility] Stop: 03/08/25 21:01 Phenobarbital Sodium (Phenobarbital Sodium 130 Mg/Ml Vial) 130 mg IM Q6H PRN PRN Reason: CIWA >12 Sodium Chloride (0.9 % Sodium Chloride Flush 3 Ml Syringe) 3 ml IVFLUSH QSHIFT [facility] Last Admin: 03/06/25 11:31 Dose: 3 ml Documented By: CECILIA Thiamine HCl (Thiamine Hcl 100 Mg Tablet) 100 mg PO DAILY [facility] Stop: 03/09/25 08:59 Last Admin: 03/06/25 11:28 Dose: 100 mg Documented By: CECILIA Tizanidine HCl (Tizanidine Hcl 4 Mg Tablet) 4 mg PO BID PRN PRN Reason: Muscle Spasm Valacyclovir HCl (Valacyclovir Hcl 1,000 Mg Tablet) 2,000 mg PO Q12H PRN PRN Reason: Outbreak Labs 03/06/25 11:53 03/06/25 11:52 Labs: Laboratory Results - last 24 hr 03/06/25 03/06/25 11:52 11:53 MCV 90.7 MCH 29.5 MCHC 32.5 RDW 13.7 Plt Count 234 MPV 9.2 L Absolute Nucleated RBC 0.000 Nucleated RBC % (auto) 0.0 Anion Gap 13 Estim Creat Clear Calc 53.4 Estimated GFR 58 Random Glucose 95 Calcium 9.0 Magnesium 1.7 Ammonia 31 Assessment and Plan (1) Alcohol withdrawal: Status: Acute (2) Tremor: Status: Acute Plan Pt is a 64-year-old male with a PMH significant for HTN,?GERD who initially presented yesterday on 03/02 to the ED after fall at home with head strike and laceration to the right scalp. He then asks me to make sure I remember to bring him the keys when I come back to see him. Acute metabolic encephalopathy likely multifactorial including alcohol withdrawal, electrolytes abnormallites. He reported drink 10 to 15 beers a day Noo longer Tremulous, confused, hallucinating, agitated and combative Hold Phenobarb protocol in light of excessive somnolence Daily multivitamin, folic acid Thiamine replacement Follow lytes, Mag, BMP CIWA scale Addiction medicine consult Hypertensive urgency, BP as high as 209/10, iimproved, and likely related to etoh withdrawal, BP is now normal Continue diltiazem, lisinopril, metoprolol Hydralazine 5 mg IV p.r.n. for SBP >170 Follow BP closely Hypokalemia/hypomagnesemia--corrected and resolved. Fall at home S/p 5 mauro to close right scalp laceration, nondisplaced fractures of left 8th and 9th ribs posteriorly PT recommending STR upon discharge Neuropathy Continue gabapentin but reduce dose due to some GERD Continue omeprazole Mood disorder Continue duloxetine Full Code DVT Prophylaxis: [employer] Stroke Does the patient have a stroke diagnosis?: No VTE Prior VTE?: No VTE Risk Level:: Medical - moderate - high VTE Device Contraindication: Treatment Not Indicated VTE Drug Contraindication: N/A - Med Ordered
[2025-03-06 15:54] VITALS: BP 150/81; PULSE 72; RESP 18; TEMP 36.6; O2SAT 98
[2025-03-06 20:00] VITALS: BP 152/68; PULSE 70; RESP 18; TEMP 36.9; O2SAT 97
--- NOTE | 2025-03-07 | EEG_ITS ---
This is a 16 channel EEG with an EKG lead. Patient is reported awake and drowsy during the tracing. Background EEG rhythm is mostly mixed theta beta with amplitude of 5-20 microvolt posteriorly lower amplitude fast anteriorly. Photic stimulation does not produce any significant driving. Hyperventilation is not performed. Cardiac lead does not reveal any significant abnormality. No sharp wave spikes or paroxysmal tendency noted. Impression: Mild slowing with no evidence of seizure disorder. MTDD
[2025-03-07] MEDS: 0.9 % Sodium Chloride Flush 3 ML SYRINGE IVFLUSH ×3 (03:44→21:50)
[2025-03-07 03:51] VITALS: BP 170/93; PULSE 83; RESP 16; TEMP 37; O2SAT 97
[2025-03-07 07:03] VITALS: BP 180/82; PULSE 74; RESP 18; TEMP 37.2; O2SAT 98
[2025-03-07] MEDS: dilTIAZem HCL CD 180 MG CAP.ER.24H 360 MG PO (08:00)
[2025-03-07] MEDS: Metoprolol Tartrate 12.5 MG HALFTAB PO ×2 (08:01→19:37)
--- NOTE | 2025-03-07 10:59 | HO.PM.IMPN ---
Subjective Subjective Date of Service: 03/07/25 Interval History: Patient is very confused this morning, constantly yelling I want sweatshirt CT yesterday, showed no acute finding, ammonia level was normal Phenobarbital continues to be on hold for now, he has not been eating much Physical Exam Vital Signs: Vital Signs: Last Vital Signs Temp 99.0 F 03/07/25 07:03 Pulse 74 03/07/25 07:03 Resp 18 03/07/25 07:03 BP 180/82 H 03/07/25 07:03 Pulse Ox 98 03/07/25 07:03 O2 Del Method Room Air 03/07/25 07:03 BMI result Body Mass Index 19.4 Const: Other: General: oriented to self and place, no acute distress Resp: CTA bilateral CVS: S1,S2,RRR GI: +BS, NT, no distention Skin: No rash Neuro: motor grossly intact Psych: appropriate affect Objective Data Active Medications Acetaminophen (Acetaminophen 325 Mg Tablet) 650 mg PO Q6H PRN PRN Reason: Pain, Mild 1-3,fever,headache Buprenorphine/Naloxone (Buprenorphine/Naloxone 8/2 Mg Film) 1 film SUBLINGUAL DAILY [facility] Last Admin: 03/07/25 08:03 Dose: 1 film Documented By: CECILIA Calcium Carbonate (Calcium Carbonate 750 Mg Tab.Chew) 750 mg PO Q4H PRN PRN Reason: Heartburn Diltiazem HCl (Diltiazem Hcl Cd 180 Mg Cap.Er.24h) 360 mg PO DAILY [facility]; Protocol Last Admin: 03/07/25 08:00 Dose: 360 mg Documented By: CECILIA Duloxetine HCl (Duloxetine Hcl 30 Mg Capsule.Dr) 30 mg PO BID [facility] Last Admin: 03/07/25 09:00 Dose: Not Given Documented By: CECILIA Non-Admin Reason: Physician Approved Enoxaparin Sodium (Enoxaparin Sodium 40 Mg/0.4 Ml Syringe) 40 mg SUBCUT Q24H [facility] Last Admin: 03/06/25 11:31 Dose: 40 mg Documented By: CECILIA Famotidine (Famotidine 20 Mg Tablet) 20 mg PO BID [facility] Last Admin: 03/07/25 08:01 Dose: 20 mg Documented By: CECILIA Gabapentin (Gabapentin 400 Mg Capsule) 400 mg PO DAILY [facility] Last Admin: 03/06/25 11:38 Dose: Not Given Documented By: CECILIA Non-Admin Reason: Physician Approved Lisinopril (Lisinopril 40 Mg Tablet) 40 mg PO DAILY [facility]; Protocol Last Admin: 03/07/25 08:01 Dose: 40 mg Documented By: CECILIA Magnesium Hydroxide (Milk Of Magnesia 30 Ml Oral.Susp) 30 ml PO DAILY PRN PRN Reason: Constipation Metoprolol Tartrate (Metoprolol Tartrate 12.5 Mg Halftab) 12.5 mg PO BID [facility]; Protocol Last Admin: 03/07/25 08:01 Dose: 12.5 mg Documented By: CECILIA Omeprazole (Omeprazole 20 Mg Capsule.Dr) 20 mg PO DAILY [facility] Last Admin: 03/07/25 08:01 Dose: 20 mg Documented By: CECILIA Ondansetron HCl (Ondansetron Odt 8 Mg Tab.Rapdis) 8 mg TRANSLINGU Q8H PRN PRN Reason: Nausea and Vomiting Pharmacy Consult (Consult Rx Etoh Phenob Im/Po) 1 each MISCELLANE ONCE PRN; Protocol PRN Reason: Consult order Phenobarbital (Phenobarbital 30 Mg Tablet) 30 mg PO BEDTIME [facility] Stop: 03/08/25 21:01 Phenobarbital Sodium (Phenobarbital Sodium 130 Mg/Ml Vial) 130 mg IM Q6H PRN PRN Reason: CIWA >12 Sodium Chloride (0.9 % Sodium Chloride Flush 3 Ml Syringe) 3 ml IVFLUSH QSHIFT [facility] Last Admin: 03/07/25 08:03 Dose: 3 ml Documented By: CECILIA Thiamine HCl (Thiamine Hcl 100 Mg Tablet) 100 mg PO DAILY [facility] Stop: 03/09/25 08:59 Last Admin: 03/07/25 08:01 Dose: 100 mg Documented By: CECILIA Tizanidine HCl (Tizanidine Hcl 4 Mg Tablet) 4 mg PO BID PRN PRN Reason: Muscle Spasm Valacyclovir HCl (Valacyclovir Hcl 1,000 Mg Tablet) 2,000 mg PO Q12H PRN PRN Reason: Outbreak Labs 03/06/25 11:53 03/06/25 11:52 Labs: Laboratory Results - last 24 hr 03/06/25 03/06/25 11:52 11:53 MCV 90.7 MCH 29.5 MCHC 32.5 RDW 13.7 Plt Count 234 MPV 9.2 L Absolute Nucleated RBC 0.000 Nucleated RBC % (auto) 0.0 Anion Gap 13 Estim Creat Clear Calc 53.4 Estimated GFR 58 Random Glucose 95 Calcium 9.0 Magnesium 1.7 Ammonia 31 Assessment and Plan (1) Alcohol withdrawal: Status: Acute (2) Tremor: Status: Acute Plan Pt is a 64-year-old male with a PMH significant for HTN,?GERD who initially presented yesterday on 03/02 to the ED after fall at home with head strike and laceration to the right scalp. He then asks me to make sure I remember to bring him the keys when I come back to see him. Acute metabolic encephalopathy likely multifactorial including alcohol withdrawal, electrolytes abnormallites. He reported drink 10 to 15 beers a day No longer Tremulous, confused, hallucinating, agitated and combative Hold Phenobarb protocol in light of excessive somnolence Daily multivitamin, folic acid Thiamine replacement Follow lytes, Mag, BMP CIWA scale Addiction medicine consult Hypertensive urgency, BP as high as 209/10, iimproved, and likely related to etoh withdrawal, BP is now normal Continue diltiazem, lisinopril, metoprolol Hydralazine 5 mg IV p.r.n. for SBP >170 Follow BP closely Hypokalemia/hypomagnesemia--corrected and resolved. Fall at home S/p 5 mauro to close right scalp laceration, nondisplaced fractures of left 8th and 9th ribs posteriorly PT recommending STR upon discharge Neuropathy Continue gabapentin but reduce dose due to some GERD Continue omeprazole Mood disorder Continue duloxetine Full Code DVT Prophylaxis: [place] Stroke Does the patient have a stroke diagnosis?: No VTE Prior VTE?: No VTE Risk Level:: Medical - moderate - high VTE Device Contraindication: Treatment Not Indicated VTE Drug Contraindication: N/A - Med Ordered
[2025-03-07 11:03] VITALS: BP 158/70; PULSE 58; RESP 18; TEMP 36.5; O2SAT 97
--- NOTE | 2025-03-07 12:45 | PM.NEUROCN ---
History of Present Illness Data of Consult Service Date: 03/07/25 Primary Care Provider: CORTES Connors HPI Reason for consult: Encephalopathy 64 years old man I was asked to see for change in mental status. History was mostly obtained from the chart. She was unable to provide any meaningful details. Apparently he was brought to hospital recently after fall and sustaining a laceration. Later he had further deterioration of mental status and was brought here. No definitive etiology was found except that he apparently has been drinking 10-15 alcoholic beverages a day. There was no recent seizure, fever, or exposure to any new medicine. Review of Systems Review of Systems: Could not be done with a [facility] Past Medical History Medical History Hypertension Social History Social History Household Members: Spouse Housing: House Do you presently have visiting nurse or other home services: No Alcohol intake: current Alcohol intake frequency: 3 or more drinks per day Alcohol type: beer Comment: Sitter Patient Tobacco Use Status: Never used Tobacco Smoked in Last 30 Days: No Use of substances other than those prescribed or required for medical reasons: No Currently Displaying Signs/Symptoms of Drug Intoxication Withdrawal: No Have you been hit, kicked, punched, or otherwise hurt by someone within the past year? If so, by whom?: No Do you feel safe in your current relationship?: Yes Is there a partner from a previous relationship who is making you feel unsafe now?: No Are you made to feel afraid or neglected: No Advance Directives: No Advance Directives Information Provided: No Do you have a plan to hurt others: No Plan Recently lost weight without trying: No Eating poorly because of decreased appetite: No Nutrition Risks: No Nutritional Risk Poor oral hygiene: No service: No Meds Allergies Allergy/AdvReac Type Severity Reaction Status Date / Time Sulfa (Sulfonamide Allergy Rash Verified 03/02/25 15:37 Antibiotics) Active Medications: Current Medications Acetaminophen (Acetaminophen 325 Mg Tablet) 650 mg PO Q6H PRN PRN Reason: Pain, Mild 1-3,fever,headache Buprenorphine/Naloxone (Buprenorphine/Naloxone 8/2 Mg Film) 1 film SUBLINGUAL DAILY [facility] Last Admin: 03/07/25 08:03 Dose: 1 film Calcium Carbonate (Calcium Carbonate 750 Mg Tab.Chew) 750 mg PO Q4H PRN PRN Reason: Heartburn Diltiazem HCl (Diltiazem Hcl Cd 180 Mg Cap.Er.24h) 360 mg PO DAILY [facility]; Protocol Last Admin: 03/07/25 08:00 Dose: 360 mg Duloxetine HCl (Duloxetine Hcl 30 Mg Capsule.Dr) 30 mg PO BID [facility] Last Admin: 03/07/25 09:00 Dose: Not Given Enoxaparin Sodium (Enoxaparin Sodium 40 Mg/0.4 Ml Syringe) 40 mg SUBCUT Q24H [facility] Last Admin: 03/07/25 11:34 Dose: 40 mg Famotidine (Famotidine 20 Mg Tablet) 20 mg PO BID [facility] Last Admin: 03/07/25 08:01 Dose: 20 mg Gabapentin (Gabapentin 400 Mg Capsule) 400 mg PO DAILY [facility] Last Admin: 03/07/25 11:24 Dose: Not Given Lactated Ringer's (Lr) 1,000 mls @ 125 mls/hr IVCONT .Q8H [facility] Lisinopril (Lisinopril 40 Mg Tablet) 40 mg PO DAILY [facility]; Protocol Last Admin: 03/07/25 08:01 Dose: 40 mg Magnesium Hydroxide (Milk Of Magnesia 30 Ml Oral.Susp) 30 ml PO DAILY PRN PRN Reason: Constipation Metoprolol Tartrate (Metoprolol Tartrate 12.5 Mg Halftab) 12.5 mg PO BID [facility]; Protocol Last Admin: 03/07/25 08:01 Dose: 12.5 mg Omeprazole (Omeprazole 20 Mg Capsule.Dr) 20 mg PO DAILY [facility] Last Admin: 03/07/25 08:01 Dose: 20 mg Ondansetron HCl (Ondansetron Odt 8 Mg Tab.Rapdis) 8 mg TRANSLINGU Q8H PRN PRN Reason: Nausea and Vomiting Pharmacy Consult (Consult Rx Etoh Phenob Im/Po) 1 each MISCELLANE ONCE [facility]; Protocol PRN Reason: Consult order Phenobarbital (Phenobarbital 30 Mg Tablet) 30 mg PO BEDTIME [facility] Stop: 03/08/25 21:01 Phenobarbital Sodium (Phenobarbital Sodium 130 Mg/Ml Vial) 130 mg IM Q6H PRN PRN Reason: CIWA >12 Sodium Chloride (0.9 % Sodium Chloride Flush 3 Ml Syringe) 3 ml IVFLUSH QSHIFT [facility] Last Admin: 03/07/25 08:03 Dose: 3 ml Thiamine HCl (Thiamine Hcl 100 Mg Tablet) 100 mg PO DAILY [facility] Stop: 03/09/25 08:59 Last Admin: 03/07/25 08:01 Dose: 100 mg Tizanidine HCl (Tizanidine Hcl 4 Mg Tablet) 4 mg PO BID PRN PRN Reason: Muscle Spasm Valacyclovir HCl (Valacyclovir Hcl 1,000 Mg Tablet) 2,000 mg PO Q12H PRN PRN Reason: Outbreak Home Medications ?Medication ?Instructions ?Recorded ?Confirmed ?Last Taken ?Type buprenorphine 8 mg-naloxone 2 mg 1 film sublingual DAILY 03/03/25 03/03/25 Unknown History sublingual film calcipotriene 0.005 % topical 1 appl topical BID 03/03/25 03/03/25 Unknown History ointment diltiazem HCl 360 mg 360 mg PO DAILY 03/03/25 03/03/25 Unknown History capsule,extended release 24 hr duloxetine 30 mg capsule,delayed 30 mg PO BID 03/03/25 03/03/25 Unknown History release fluorouracil 5 % topical cream 1 appl topical BID 03/03/25 03/03/25 Unknown History gabapentin 400 mg capsule 400 mg PO DAILY 03/03/25 03/03/25 Unknown History gabapentin 800 mg tablet 800 mg PO BID 03/03/25 03/03/25 Unknown History ibuprofen 600 mg tablet 600 mg PO TID 03/03/25 03/03/25 Unknown History lisinopril 40 mg tablet 40 mg PO QAM 03/03/25 03/03/25 Unknown History metoprolol tartrate 25 mg tablet 12.5 mg PO BID 03/03/25 03/03/25 Unknown History omeprazole 20 mg capsule,delayed 20 mg PO DAILY 03/03/25 03/03/25 Unknown History release ondansetron HCl 8 mg tablet 8 mg PO Q8H PRN Nausea And Vomiting 03/03/25 03/03/25 Unknown History tizanidine 4 mg tablet 4 mg PO BID PRN Muscle Spasm 03/03/25 03/03/25 Unknown History valacyclovir 1 gram tablet 2,000 mg PO Q12H PRN Outbreak 03/03/25 03/03/25 Unknown History Physical Exam Vital Signs: Vital Signs: Last Vital Signs Temp 97.7 F 03/07/25 11:03 Pulse 58 03/07/25 11:03 Resp 18 03/07/25 11:03 BP 158/70 H 03/07/25 11:03 Pulse Ox 97 03/07/25 11:03 O2 Del Method Room Air 03/07/25 11:03 BMI result Body Mass Index 19.4 Neuro: Other: He is alert and awake with a flat affect. Spontaneity and fluency of speech her slightly diminished. He is following simple commands. He recognizes brother, named color, it was able to repeat. Face was symmetrical. Visual phelan were okay. There was no obvious focal weakness though moderately severe diffuse muscle atrophy was noted with no obvious fasciculations. Deep tendon reflexes were absent with flexor plantars. No obvious tongue abnormality was noted. Results Labs 03/06/25 11:53 03/06/25 11:52 Labs: Mild cerebellar and cerebral atrophy was noted on his CAT scan. Assessment and Plan (1) Acute metabolic encephalopathy: Status: Acute Probably multifactorial encephalopathy with reported history of significant alcohol drinking. For now, treatment with thiamine, folate, and B complex vitamin is recommended. An MRI of brain without contrast in an EEG or also recommended to rule out any treatable causes of encephalopathy. With the amount of reported alcohol intake, which should watch for alcohol withdrawal symptomatology or syndrome. Procedures Date of Service Date of Service: 03/07/25
[2025-03-07] MEDS: Lactated Ringers 1,000 ML 125 ML IVCONT ×2 (13:15→22:18)
--- NOTE | 2025-03-07 13:47 | MHC.SL.SWA ---
Speech Pathologist Impression: Risk of Aspiration Due to: level of confusion Dysphasia Diet Status: Chopped/Advanced (NDD3) [place] thick lqiuids Liquid Consistency and Strategies for Safe Swallow: Liquid Intake Recommendation: [place] Thick Liquid Intake Strategies: Solid Food Consistency: Dietary Recommendations: Chopped/Advanced (NDD3) Additional Modifications to Solid Foods: Oral Medication Intake: Crushed with Puree Please contact the pharmacy regarding appropriate crushable or liquid drug formulations that are available whenever modified delivery is recommended. Compensatory Strategies and Precautions to be Taken for Safe Swallow: Supervision While Eating and Drinking for Safe Swallow: Total Assistance (1:1) Foods to Avoid: Difficult to chew solids, too large pieces of food. Swallowing Recommended Treatments: Recommendation for Speech: Inpatient Speech Therapy Comment: Patient presents as disoriented, confused and with erratic behavior. Patient is unable to feed self secondary to level of confusion, erratic responses. On assessment today, patient presented with all aspects of oral motor function WFL, mildly slow oral phase of swallow on solid foods, and consistent coughing on thin liquids despite observed timeliness and coordination of swallow on this consistency. Patient tolerated nectar thick liquids with no clinical signs of aspiration. Recommend DOWNGRADE diet to Chopped/Advanced (for ease of access) with NECTAR THICK liquids, pills crushed in puree. Patient requires 1-1 feeding due to level of confusion, may be difficult to feed due to erratic responses/behavior. MD SWENSON notified of recommendations by secure text, discussed with RN in person. RESEARCH ANALYST will continue to follow for toleration, possible advancement of diet. Frequency/Duration: Date Range for Service Req: Timeline to reassess: Generation Technician Clinican/Clinical Fellow: No Supervisory Statement: I have reviewed and agree with the student/clinical fellow's documentation: N/A Speech Language Pathologist: Doreen Vernon M.A., [facility]RESEARCH ANALYST
[2025-03-07 15:43] VITALS: BP 176/82; PULSE 72; RESP 18; TEMP 37.1; O2SAT 98
[2025-03-07 20:00] VITALS: BP 162/86; PULSE 72; RESP 18; TEMP 37.2; O2SAT 96
[2025-03-07 23:46] VITALS: BP 144/72; PULSE 64; RESP 18; TEMP 36.6; O2SAT 96
[2025-03-08] VITALS (7 sets, daily range): BP systolic 148–176; BP diastolic 65–84; PULSE 63–78; RESP 14–18; TEMP 36.2–37; O2SAT 96–98
[2025-03-08] MEDS: Lactated Ringers 1,000 ML 125 ML IVCONT ×3 (05:36→21:32)
[2025-03-08] MEDS: dilTIAZem HCL CD 180 MG CAP.ER.24H 360 MG PO (09:10)
[2025-03-08] MEDS: Metoprolol Tartrate 12.5 MG HALFTAB PO ×2 (09:11→19:49)
--- NOTE | 2025-03-08 09:53 | HO.PM.IMPN ---
Subjective Subjective Date of Service: 03/08/25 Interval History: Remains confused, but more alert, oriented to self and place, reportedly hit head against bed rail, not a fall, no apparent injury. He is less sedate MRI showed no acute finding Physical Exam Vital Signs: Vital Signs: Last Vital Signs Temp 97.9 F 03/08/25 07:12 Pulse 78 03/08/25 07:12 Resp 14 03/08/25 07:12 BP 162/70 H 03/08/25 07:12 Pulse Ox 97 03/08/25 07:12 O2 Del Method Room Air 03/08/25 07:12 BMI result Body Mass Index 19.4 Const: Other: General: oriented to self and place, no acute distress Resp: CTA bilateral CVS: S1,S2,RRR GI: +BS, NT, no distention Skin: No rash Neuro: motor grossly intact Psych: appropriate affect Objective Data Active Medications Acetaminophen (Acetaminophen 325 Mg Tablet) 650 mg PO Q6H PRN PRN Reason: Pain, Mild 1-3,fever,headache Last Admin: 03/08/25 05:23 Dose: 650 mg Documented By: CESAR Buprenorphine/Naloxone (Buprenorphine/Naloxone 8/2 Mg Film) 1 film SUBLINGUAL DAILY [facility] Last Admin: 03/08/25 09:13 Dose: 1 film Documented By: MARLENI Calcium Carbonate (Calcium Carbonate 750 Mg Tab.Chew) 750 mg PO Q4H PRN PRN Reason: Heartburn Diltiazem HCl (Diltiazem Hcl Cd 180 Mg Cap.Er.24h) 360 mg PO DAILY [facility]; Protocol Last Admin: 03/08/25 09:10 Dose: 360 mg Documented By: MARLENI Duloxetine HCl (Duloxetine Hcl 30 Mg Capsule.Dr) 30 mg PO BID [facility] Last Admin: 03/08/25 09:04 Dose: 30 mg Documented By: MARLENI Enoxaparin Sodium (Enoxaparin Sodium 40 Mg/0.4 Ml Syringe) 40 mg SUBCUT Q24H [facility] Last Admin: 03/07/25 11:34 Dose: 40 mg Documented By: CECILIA Famotidine (Famotidine 20 Mg Tablet) 20 mg PO BID [facility] Last Admin: 03/08/25 09:11 Dose: 20 mg Documented By: MARLENI Folic Acid (Folic Acid 1 Mg Tablet) 1 mg PO DAILY [facility] Stop: 03/10/25 09:01 Last Admin: 03/08/25 09:13 Dose: 1 mg Documented By: MARLENI Gabapentin (Gabapentin 400 Mg Capsule) 400 mg PO DAILY [facility] Last Admin: 03/08/25 09:12 Dose: 400 mg Documented By: MARLENI Lactated Ringer's (Lr) 1,000 mls @ 125 mls/hr IVCONT .Q8H [facility] Last Admin: 03/08/25 05:36 Dose: 125 mls/hr Documented By: CESAR Lisinopril (Lisinopril 40 Mg Tablet) 40 mg PO DAILY [facility]; Protocol Last Admin: 03/08/25 09:12 Dose: 40 mg Documented By: MARLENI Magnesium Hydroxide (Milk Of Magnesia 30 Ml Oral.Susp) 30 ml PO DAILY PRN PRN Reason: Constipation Metoprolol Tartrate (Metoprolol Tartrate 12.5 Mg Halftab) 12.5 mg PO BID [facility]; Protocol Last Admin: 03/08/25 09:11 Dose: 12.5 mg Documented By: MARLENI Omeprazole (Omeprazole 20 Mg Capsule.Dr) 20 mg PO DAILY [facility] Last Admin: 03/08/25 09:10 Dose: 20 mg Documented By: MARLENI Ondansetron HCl (Ondansetron Odt 8 Mg Tab.Rapdis) 8 mg TRANSLINGU Q8H PRN PRN Reason: Nausea and Vomiting Pharmacy Consult (Consult Rx Etoh Phenob Im/Po) 1 each MISCELLANE ONCE [facility]; Protocol PRN Reason: Consult order Sodium Chloride (0.9 % Sodium Chloride Flush 3 Ml Syringe) [facility] Last Admin: 03/08/25 09:18 Dose: Not Given Documented By: MARLENI Non-Admin Reason: IV Running Thiamine HCl (Thiamine Hcl 100 Mg Tablet) 100 mg PO DAILY [facility] Stop: 03/09/25 08:59 Last Admin: 03/08/25 09:10 Dose: 100 mg Documented By: MARLENI Tizanidine HCl (Tizanidine Hcl 4 Mg Tablet) 4 mg PO BID PRN PRN Reason: Muscle Spasm Last Admin: 03/08/25 05:22 Dose: 4 mg Documented By: HO.PETERR Valacyclovir HCl (Valacyclovir Hcl 1,000 Mg Tablet) 2,000 mg PO Q12H PRN PRN Reason: Outbreak Labs 03/06/25 11:53 03/06/25 11:52 Labs: Laboratory Results - last 24 hr 03/06/25 03/06/25 11:52 11:53 MCV 90.7 MCH 29.5 MCHC 32.5 RDW 13.7 Plt Count 234 MPV 9.2 L Absolute Nucleated RBC 0.000 Nucleated RBC % (auto) 0.0 Anion Gap 13 Estim Creat Clear Calc 53.4 Estimated GFR 58 Random Glucose 95 Calcium 9.0 Magnesium 1.7 Ammonia 31 Assessment and Plan (1) Alcohol withdrawal: Status: Acute (2) Tremor: Status: Acute Plan Pt is a 64-year-old male with a PMH significant for HTN,?GERD who initially presented yesterday on 03/02 to the ED after fall at home with head strike and laceration to the right scalp. He then asks me to make sure I remember to bring him the keys when I come back to see him. Acute metabolic encephalopathy likely multifactorial including alcohol withdrawal, electrolytes abnormallites. He reported drink 10 to 15 beers a day No longer Tremulous, stiil confused, Hold Phenobarb protocol in light of excessive somnolence Daily multivitamin, folic acid Thiamine replacement Follow lytes, Mag, BMP CIWA scale Seen by Neuro recommend EEG in addition to MRI showing no acute fnding Addiction medicine consult Hypertensive urgency, BP as high as 209/10, iimproved, and likely related to etoh withdrawal, BP is now normal Continue diltiazem, lisinopril, metoprolol Follow BP closely HypOkalemia/hypomagnesemia--corrected and resolved. Fall at home S/p 5 mauro to close right scalp laceration, nondisplaced fractures of left 8th and 9th ribs posteriorly PT recommending STR upon discharge Neuropathy Continue gabapentin but reduce dose due to somnolence GERD Continue omeprazole Mood disorder Continue duloxetine Full Code DVT Prophylaxis: Lovenox Quality Stroke Does the patient have a stroke diagnosis?: No VTE Prior VTE?: No VTE Risk Level:: Medical - moderate - high VTE Device Contraindication: Treatment Not Indicated VTE Drug Contraindication: N/A - Med Ordered
[2025-03-08 10:54] LABS: Anion Gap 11 (12-20); Blood Urea Nitrogen 10 mg/dL (9-16); Calcium 8.8 mg/dL (8.4-10.2); Carbon Dioxide 28 mmol/L (22-29); Chloride 103 mmol/L (96-108); Creatinine Clr Calc Pharmacy 104.3; Estimated Glomerular Filt Rate > 60; Magnesium 1.5 mg/dL (1.6-2.6); Potassium 3.4 mmol/L (3.3-5.1); Sodium 139 mmol/L (135-145)
[2025-03-09 03:58] VITALS: BP 172/76; PULSE 63; RESP 18; TEMP 36.4; O2SAT 98
[2025-03-09] MEDS: Lactated Ringers 1,000 ML 125 ML IVCONT (05:48)
[2025-03-09 08:00] VITALS: BP 170/74; PULSE 65; RESP 14; TEMP 36.6; O2SAT 96
[2025-03-09] MEDS: dilTIAZem HCL CD 180 MG CAP.ER.24H 360 MG PO (09:01)
[2025-03-09] MEDS: Metoprolol Tartrate 12.5 MG HALFTAB PO ×2 (09:02→21:57)
[2025-03-09] MEDS: 0.9 % Sodium Chloride Flush 3 ML SYRINGE IVFLUSH ×2 (09:02→18:14)
--- NOTE | 2025-03-09 10:04 | HO.PM.IMPN ---
Subjective Subjective Date of Service: 03/09/25 Interval History: He seems less confused today, no signs of active withdrawal Physical Exam Vital Signs: Vital Signs: Last Vital Signs Temp 97.8 F 03/09/25 08:00 Pulse 65 03/09/25 08:00 Resp 14 03/09/25 08:00 BP 170/74 H 03/09/25 08:00 Pulse Ox 96 03/09/25 08:00 O2 Del Method Room Air 03/09/25 08:00 BMI result Body Mass Index 19.4 Const: Other: General: oriented to self and place, and able to read date correctly on the board Resp: CTA bilateral CVS: S1,S2,RRR GI: +BS, NT, no distention Skin: No rash Neuro: motor grossly intact Psych: appropriate affect Objective Data Active Medications Acetaminophen (Acetaminophen 325 Mg Tablet) 650 mg PO Q6H PRN PRN Reason: Pain, Mild 1-3,fever,headache Last Admin: 03/08/25 19:57 Dose: 650 mg Documented By: BRANDEE Buprenorphine/Naloxone (Buprenorphine/Naloxone 8/2 Mg Film) 1 film SUBLINGUAL DAILY COUNTS INCLUDE 234 BEDS AT THE [facility] Last Admin: 03/09/25 09:02 Dose: 1 film Documented By: KASSANDRA Calcium Carbonate (Calcium Carbonate 750 Mg Tab.Chew) 750 mg PO Q4H PRN PRN Reason: Heartburn Diltiazem HCl (Diltiazem Hcl Cd 180 Mg Cap.Er.24h) 360 mg PO DAILY COUNTS INCLUDE 234 BEDS AT THE [facility]; Protocol Last Admin: 03/09/25 09:01 Dose: 360 mg Documented By: KASSANDRA Duloxetine HCl (Duloxetine Hcl 30 Mg Capsule.Dr) 30 mg PO BID COUNTS INCLUDE 234 BEDS AT THE [facility] Last Admin: 03/09/25 09:02 Dose: 30 mg Documented By: KASSANDRA Enoxaparin Sodium (Enoxaparin Sodium 40 Mg/0.4 Ml Syringe) 40 mg SUBCUT Q24H COUNTS INCLUDE 234 BEDS AT THE [facility] Last Admin: 03/08/25 12:34 Dose: 40 mg Documented By: MARLENI Famotidine (Famotidine 20 Mg Tablet) 20 mg PO BID COUNTS INCLUDE 234 BEDS AT THE [facility] Last Admin: 03/09/25 09:02 Dose: 20 mg Documented By: KASSANDRA Folic Acid (Folic Acid 1 Mg Tablet) 1 mg PO DAILY COUNTS INCLUDE 234 BEDS AT THE [facility] Stop: 03/10/25 09:01 Last Admin: 03/09/25 09:02 Dose: 1 mg Documented By: KASSANDRA Gabapentin (Gabapentin 400 Mg Capsule) 400 mg PO DAILY COUNTS INCLUDE 234 BEDS AT THE [facility] Last Admin: 03/09/25 09:02 Dose: 400 mg Documented By: KASSANDRA Lactated Ringer's (Lr) 1,000 mls @ 125 mls/hr IVCONT .Q8H COUNTS INCLUDE 234 BEDS AT THE [facility] Last Admin: 03/09/25 05:48 Dose: 125 mls/hr Documented By: KASSANDRA Lisinopril (Lisinopril 40 Mg Tablet) 40 mg PO DAILY COUNTS INCLUDE 234 BEDS AT THE [facility]; Protocol Last Admin: 03/09/25 09:01 Dose: 40 mg Documented By: KASSANDRA Magnesium Hydroxide (Milk Of Magnesia 30 Ml Oral.Susp) 30 ml PO DAILY PRN PRN Reason: Constipation Metoprolol Tartrate (Metoprolol Tartrate 12.5 Mg Halftab) 12.5 mg PO BID COUNTS INCLUDE 234 BEDS AT THE [facility]; Protocol Last Admin: 03/09/25 09:02 Dose: 12.5 mg Documented By: KASSANDRA Omeprazole (Omeprazole 20 Mg Capsule.Dr) 20 mg PO DAILY COUNTS INCLUDE 234 BEDS AT THE [facility] Last Admin: 03/09/25 09:00 Dose: 20 mg Documented By: KASSANDRA Ondansetron HCl (Ondansetron Odt 8 Mg Tab.Rapdis) 8 mg TRANSLINGU Q8H PRN PRN Reason: Nausea and Vomiting Pharmacy Consult (Consult Rx Etoh Phenob Im/Po) 1 each MISCELLANE ONCE PRN; Protocol PRN Reason: Consult order Sodium Chloride (0.9 % Sodium Chloride Flush 3 Ml Syringe) [facility] Last Admin: 03/09/25 09:02 Dose: 3 ml Documented By: KASSANDRA Tizanidine HCl (Tizanidine Hcl 4 Mg Tablet) 4 mg PO BID PRN PRN Reason: Muscle Spasm Last Admin: 03/08/25 05:22 Dose: 4 mg Documented By: CESAR Valacyclovir HCl (Valacyclovir Hcl 1,000 Mg Tablet) 2,000 mg PO Q12H PRN PRN Reason: Outbreak Labs 03/06/25 11:53 03/08/25 10:07 Labs: Laboratory Results - last 24 hr 03/08/25 10:07 Anion Gap 11 L Estim Creat Clear Calc 104.3 Estimated GFR > 60 Random Glucose 98 Calcium 8.8 Magnesium 1.5 L Assessment and Plan (1) Alcohol withdrawal: Status: Acute (2) Tremor: Status: Acute Plan Pt is a 64-year-old male with a PMH significant for HTN,?GERD who initially presented yesterday on 03/02 to the ED after fall at home with head strike and laceration to the right scalp. He then asks me to make sure I remember to bring him the keys when I come back to see him. Acute metabolic encephalopathy likely multifactorial including alcohol withdrawal, electrolytes abnormallites. He reported drink 10 to 15 beers a day No longer Tremulous, becoming more lucid Hold Phenobarb protocol in light of excessive somnolence Daily multivitamin, folic acid Thiamine replacement Follow lytes, Mag, BMP CIWA scale Seen by Neuro recommend EEG in addition to MRI showing no acute fnding Addiction medicine consult Hypertensive urgency, BP as high as 209/10, iimproved, and likely related to etoh withdrawal, BP is now normal Continue diltiazem, lisinopril, metoprolol Follow BP closely HypOkalemia/hypomagnesemia--corrected and resolved. Fall at home S/p 5 mauro to close right scalp laceration, nondisplaced fractures of left 8th and 9th ribs posteriorly PT recommending STR upon discharge Neuropathy Continue gabapentin but reduce dose due to somnolence GERD Continue omeprazole Mood disorder Continue duloxetine Full Code DVT Prophylaxis: Lovenox Quality Stroke Does the patient have a stroke diagnosis?: No VTE Prior VTE?: No VTE Risk Level:: Medical - moderate - high VTE Device Contraindication: Treatment Not Indicated VTE Drug Contraindication: N/A - Med Ordered
[2025-03-09] MEDS: Magnesium Sulfate/H2O 2 GM/50 ML PIGGYBACK IV (10:33)
[2025-03-09 11:16] VITALS: BP 162/68; PULSE 64; RESP 16; TEMP 36.7; O2SAT 95
[2025-03-09 15:13] VITALS: BP 144/68; PULSE 82; RESP 16; TEMP 36.7; O2SAT 96
[2025-03-09 20:00] VITALS: BP 156/80; PULSE 82; RESP 18; TEMP 36.5; O2SAT 94
[2025-03-10] VITALS (7 sets, daily range): BP systolic 148–186; BP diastolic 72–86; PULSE 63–83; RESP 16–18; TEMP 36.4–37.1; O2SAT 95–97
[2025-03-10] MEDS: 0.9 % Sodium Chloride Flush 3 ML SYRINGE IVFLUSH ×4 (00:26→20:06)
[2025-03-10] MEDS: dilTIAZem HCL CD 180 MG CAP.ER.24H 360 MG PO (08:20)
[2025-03-10] MEDS: Metoprolol Tartrate 12.5 MG HALFTAB PO (08:21)
--- NOTE | 2025-03-10 12:21 | HO.PM.IMPN ---
Subjective Subjective Date of Service: 03/10/25 Interval History: He is less confused, Alert, oriented x 3 Physical Exam Vital Signs: Vital Signs: Last Vital Signs Temp 98.5 F 03/10/25 11:46 Pulse 77 03/10/25 11:46 Resp 18 03/10/25 11:46 BP 158/84 H 03/10/25 11:46 Pulse Ox 96 03/10/25 11:46 O2 Del Method Room Air 03/10/25 11:46 BMI result Body Mass Index 19.4 Const: Other: General: oriented to self and place, and able to read date correctly on the board Resp: CTA bilateral CVS: S1,S2,RRR GI: +BS, NT, no distention Skin: No rash Neuro: motor grossly intact Psych: appropriate affect Objective Data Active Medications Acetaminophen (Acetaminophen 325 Mg Tablet) 650 mg PO Q6H PRN PRN Reason: Pain, Mild 1-3,fever,headache Last Admin: 03/08/25 19:57 Dose: 650 mg Documented By: BRANDEE Buprenorphine/Naloxone (Buprenorphine/Naloxone 8/2 Mg Film) 1 film SUBLINGUAL DAILY [facility] Last Admin: 03/10/25 08:20 Dose: 1 film Documented By: CORY Calcium Carbonate (Calcium Carbonate 750 Mg Tab.Chew) 750 mg PO Q4H PRN PRN Reason: Heartburn Diltiazem HCl (Diltiazem Hcl Cd 180 Mg Cap.Er.24h) 360 mg PO DAILY [facility]; Protocol Last Admin: 03/10/25 08:20 Dose: 360 mg Documented By: CORY Duloxetine HCl (Duloxetine Hcl 30 Mg Capsule.Dr) 30 mg PO BID [facility] Last Admin: 03/10/25 08:21 Dose: 30 mg Documented By: CORY Enoxaparin Sodium (Enoxaparin Sodium 40 Mg/0.4 Ml Syringe) 40 mg SUBCUT Q24H [facility] Last Admin: 03/10/25 12:05 Dose: 40 mg Documented By: CORY Famotidine (Famotidine 20 Mg Tablet) 20 mg PO BID [facility] Last Admin: 03/10/25 08:21 Dose: 20 mg Documented By: CORY Gabapentin (Gabapentin 400 Mg Capsule) 400 mg PO DAILY [facility] Last Admin: 03/10/25 08:19 Dose: 400 mg Documented By: CORY Lisinopril (Lisinopril 40 Mg Tablet) 40 mg PO DAILY [facility]; Protocol Last Admin: 03/10/25 08:20 Dose: 40 mg Documented By: CORY Magnesium Hydroxide (Milk Of Magnesia 30 Ml Oral.Susp) 30 ml PO DAILY PRN PRN Reason: Constipation Metoprolol Tartrate (Metoprolol Tartrate 12.5 Mg Halftab) 12.5 mg PO BID [facility]; Protocol Last Admin: 03/10/25 08:21 Dose: 12.5 mg Documented By: CORY Omeprazole (Omeprazole 20 Mg Capsule.Dr) 20 mg PO DAILY [facility] Last Admin: 03/10/25 08:21 Dose: 20 mg Documented By: CORY Ondansetron HCl (Ondansetron Odt 8 Mg Tab.Rapdis) 8 mg TRANSLINGU Q8H PRN PRN Reason: Nausea and Vomiting Pharmacy Consult (Consult Rx Etoh Phenob Im/Po) 1 each MISCELLANE ONCE PRN; Protocol PRN Reason: Consult order Sodium Chloride (0.9 % Sodium Chloride Flush 3 Ml Syringe) [facility] Last Admin: 03/10/25 08:25 Dose: 3 ml Documented By: CORY Tizanidine HCl (Tizanidine Hcl 4 Mg Tablet) 4 mg PO BID PRN PRN Reason: Muscle Spasm Last Admin: 03/08/25 05:22 Dose: 4 mg Documented By: CESAR Valacyclovir HCl (Valacyclovir Hcl 1,000 Mg Tablet) 2,000 mg PO Q12H PRN PRN Reason: Outbreak Labs 03/06/25 11:53 03/08/25 10:07 Labs: Laboratory Results - last 24 hr 03/08/25 10:07 Anion Gap 11 L Estim Creat Clear Calc 104.3 Estimated GFR > 60 Random Glucose 98 Calcium 8.8 Magnesium 1.5 L Assessment and Plan (1) Alcohol withdrawal: Status: Acute (2) Tremor: Status: Acute Plan Pt is a 64-year-old male with a PMH significant for HTN,?GERD who initially presented yesterday on 03/02 to the ED after fall at home with head strike and laceration to the right scalp. He then asks me to make sure I remember to bring him the keys when I come back to see him. Acute metabolic encephalopathy likely multifactorial including alcohol withdrawal, electrolytes abnormallites. He reportedly drinks 10 to 15 beers a day--Much better now No longer Tremulous, less confused Hold Phenobarb protocol in light of excessive somnolence Daily multivitamin, folic acid Thiamine replacement Follow lytes, Mag, BMP CIWA scale Seen by Neuro recommend EEG in addition to MRI showing no acute fnding Addiction medicine consult Hypertensive urgency, BP as high as 209/10, iimproved, and likely related to etoh withdrawal, BP is now normal Continue diltiazem, lisinopril, metoprolol (increase 50 mg bid) Follow BP closely HypOkalemia/hypomagnesemia--corrected and resolved. Fall at home S/p 5 mauro to close right scalp laceration, nondisplaced fractures of left 8th and 9th ribs posteriorly PT recommending STR upon discharge Neuropathy Continue gabapentin but reduce dose due to somnolence GERD Continue omeprazole Mood disorder Continue duloxetine Full Code DVT Prophylaxis: Lovenox PT is recommending STR No longer needs tele Quality Stroke Does the patient have a stroke diagnosis?: No VTE Prior VTE?: No VTE Risk Level:: Medical - moderate - high VTE Device Contraindication: Treatment Not Indicated VTE Drug Contraindication: N/A - Med Ordered
--- NOTE | 2025-03-10 13:48 | MHC.SL.SWA ---
Speech Pathologist Impression: Mild oral phase dysphagia Risk of Aspiration Due to: Cognitive challenges Impulsivity (speaking with food in mouth, drinking quickly) Reduced strength Dysphasia Diet Status: [facility] NDD3 (chopped) with THIN liquids, 1:1 feed, aspiration precautions Liquid Consistency and Strategies for Safe Swallow: Liquid Intake Recommendation: Thin Liquid Intake Strategies: Small Sips Solid Food Consistency: Dietary Recommendations: Chopped/Advanced (NDD3) Additional Modifications to Solid Foods: Oral Medication Intake: Crushed with Puree Please contact the pharmacy regarding appropriate crushable or liquid drug formulations that are available whenever modified delivery is recommended. Compensatory Strategies and Precautions to be Taken for Safe Swallow: Sitting Upright (90 deg) Small Bites and Sips Alternate Liquids/Solids Rate of Ingestion Change Supervision While Eating and Drinking for Safe Swallow: Direct Supervision (1:1) Foods to Avoid: Difficult to chew solids, too large pieces of food. Swallowing Recommended Treatments: Compens. Strategy Educat. Recommendation for Speech: Inpatient Speech Therapy Comment: Pt seen for dysphagia treatment, confusion has subsided. Cognitive-communication challenges persist. Pt at bedside. Pt c/o dislike for NTL. Pt tolerating soft solids without difficulty; pt is given assist during feeding. reported she gave pt ice cream and he did fine. Trials of thins provided; oropharyngeal coordination WFL. No overt s/s of aspiration observed. STUDIO GRIP provided education on physiological function of swallow and overt s/s of aspiration to be aware of. Pt verbalized understanding. [facility] NDD3 with thins, STUDIO GRIP continues to follow. Frequency/Duration: Date Range for Service Req: Timeline to reassess: Physician Vice President Clinican/Clinical Fellow: No Supervisory Statement: I have reviewed and agree with the student/clinical fellow's documentation: N/A Speech Language Pathologist: Paola Ryan M.S., CCC-STUDIO GRIP
--- NOTE | 2025-03-10 14:41 | PC.NURSE ---
Speech saw pt today and recommended chopped diet with thin liquids. Speech educated pt and (see note) on diet order. When kitchen came around to take order due to limitations pt upset stating shell just bring him food to eat Educated pt on diet order. Pt later then seen feeding pt grapes, re-educated pt and regarding diet order recommendations. Will cont to do so.
--- NOTE | 2025-03-10 15:59 | MHC.CM.PN ---
EMR reviewed and per MD rounds, pt is not medically cleared for discharge at this time. PT evaluated pt and are recommending STR. This CM met with pt to discuss STR options, pts present at bedside and request that they speak privately about rehab. This CM received a phone call from pts some time later, and she states she would like him to go to STR at [facility]. This CM explained that a referral would be placed to them, awaiting bed offer.
[2025-03-11] VITALS: BP 140/67; PULSE 63; RESP 16; TEMP 37.1; O2SAT 96
[2025-03-11 04:00] VITALS: BP 160/78; PULSE 62; RESP 16; TEMP 36.1; O2SAT 98
[2025-03-11 07:23] VITALS: BP 177/81; PULSE 67; RESP 20; TEMP 36.5; O2SAT 95
[2025-03-11] MEDS: dilTIAZem HCL CD 180 MG CAP.ER.24H 360 MG PO (08:26)
[2025-03-11] MEDS: 0.9 % Sodium Chloride Flush 3 ML SYRINGE IVFLUSH (08:29)
[2025-03-11 11:35] VITALS: BP 94/51; PULSE 56; RESP 20; TEMP 36.1; O2SAT 95
--- NOTE | 2025-03-11 12:06 | P.PNIM_ITS ---
Subjective Subjective Date of Service: 03/11/25 Interval History: Less confused but overall weak, and debilitated Physical Exam 2 Vital Signs: Vital Signs: Last Vital Signs Temp 96.9 F 03/11/25 11:35 Pulse 56 03/11/25 11:35 Resp 20 03/11/25 11:35 BP 94/51 L 03/11/25 11:35 Pulse Ox 95 03/11/25 11:35 O2 Del Method Room Air 03/11/25 11:35 BMI result Body Mass Index 19.4 Const: Other: General: oriented to self and place, and able to read date correctly on the board Resp: CTA bilateral CVS: S1,S2,RRR GI: +BS, NT, no distention Skin: No rash Neuro: motor grossly intact Psych: appropriate affect Objective Data Active Medications Acetaminophen (Acetaminophen 325 Mg Tablet) 650 mg PO Q6H PRN PRN Reason: Pain, Mild 1-3,fever,headache Last Admin: 03/08/25 19:57 Dose: 650 mg Documented By: BRANDEE Buprenorphine/Naloxone (Buprenorphine/Naloxone 8/2 Mg Film) 1 film SUBLINGUAL DAILY [facility] Last Admin: 03/11/25 08:26 Dose: 1 film Documented By: CECILIA Calcium Carbonate (Calcium Carbonate 750 Mg Tab.Chew) 750 mg PO Q4H PRN PRN Reason: Heartburn Diltiazem HCl (Diltiazem Hcl Cd 180 Mg Cap.Er.24h) 360 mg PO DAILY [facility]; Protocol Last Admin: 03/11/25 08:26 Dose: 360 mg Documented By: CECILIA Duloxetine HCl (Duloxetine Hcl 30 Mg Capsule.Dr) 30 mg PO BID [facility] Last Admin: 03/11/25 08:26 Dose: 30 mg Documented By: CECILIA Enoxaparin Sodium (Enoxaparin Sodium 40 Mg/0.4 Ml Syringe) 40 mg SUBCUT Q24H [facility] Last Admin: 03/10/25 12:05 Dose: 40 mg Documented By: CORY Famotidine (Famotidine 20 Mg Tablet) 20 mg PO BID [facility] Last Admin: 03/11/25 08:26 Dose: 20 mg Documented By: CECILIA Gabapentin (Gabapentin 400 Mg Capsule) 400 mg PO DAILY [facility] Last Admin: 03/11/25 08:26 Dose: 400 mg Documented By: CECILIA Lisinopril (Lisinopril 40 Mg Tablet) 40 mg PO DAILY [facility]; Protocol Last Admin: 03/11/25 08:26 Dose: 40 mg Documented By: CECILIA Magnesium Hydroxide (Milk Of Magnesia 30 Ml Oral.Susp) 30 ml PO DAILY PRN PRN Reason: Constipation Metoprolol Tartrate (Metoprolol Tartrate 25 Mg Tablet) 25 mg PO BID [facility]; Protocol Last Admin: 03/11/25 08:26 Dose: 25 mg Documented By: CECILIA Omeprazole (Omeprazole 20 Mg Capsule.Dr) 20 mg PO DAILY [facility] Last Admin: 03/11/25 08:26 Dose: 20 mg Documented By: CECILIA Ondansetron HCl (Ondansetron Odt 8 Mg Tab.Rapdis) 8 mg TRANSLINGU Q8H PRN PRN Reason: Nausea and Vomiting Pharmacy Consult (Consult Rx Etoh Phenob Im/Po) 1 each MISCELLANE ONCE PRN; Protocol PRN Reason: Consult order Sodium Chloride (0.9 % Sodium Chloride Flush 3 Ml Syringe) 3 ml IVFLUSH QSHIFT [facility] Last Admin: 03/11/25 08:29 Dose: 3 ml Documented By: CECILIA Tizanidine HCl (Tizanidine Hcl 4 Mg Tablet) 4 mg PO BID PRN PRN Reason: Muscle Spasm Last Admin: 03/08/25 05:22 Dose: 4 mg Documented By: CESAR Valacyclovir HCl (Valacyclovir Hcl 1,000 Mg Tablet) 2,000 mg PO Q12H PRN PRN Reason: Outbreak Labs 03/06/25 11:53 03/08/25 10:07 Labs: Laboratory Results - last 24 hr 03/08/25 10:07 Anion Gap 11 L Estim Creat Clear Calc 104.3 Estimated GFR > 60 Random Glucose 98 Calcium 8.8 Magnesium 1.5 L Assessment and Plan (1) Alcohol withdrawal: Status: Acute (2) Tremor: Status: Acute Plan Pt is a 64-year-old male with a PMH significant for HTN,?GERD who initially presented yesterday on 03/02 to the ED after fall at home with head strike and laceration to the right scalp. He then asks me to make sure I remember to bring him the keys when I come back to see him. Acute metabolic encephalopathy likely multifactorial including alcohol withdrawal, electrolytes abnormallites. He reported drink 10 to 15 beers a day No longer Tremulous, becoming more lucid Hold Phenobarb protocol in light of excessive somnolence Daily multivitamin, folic acid Thiamine replacement Follow Mag tiny, DARCI CIWA scale Seen by Neuro recommend EEG in addition to MRI showing no acute fnding Addiction medicine consult Hypertensive urgency, BP as high as 209/10, iimproved, and likely related to etoh withdrawal, BP is now normal Continue diltiazem, lisinopril, metoprolol Follow BP closely HypOkalemia/hypomagnesemia--corrected and resolved. Fall at home S/p 5 mauro to close right scalp laceration, nondisplaced fractures of left 8th and 9th ribs posteriorly PT recommending STR upon discharge Neuropathy Continue gabapentin but reduce dose due to somnolence GERD Continue omeprazole Mood disorder Continue duloxetine Full Code DVT Prophylaxis: Lovenox PT evak abd dc when bed available Quality Stroke Does the patient have a stroke diagnosis?: No VTE Prior VTE?: No VTE Risk Level:: Medical - moderate - high VTE Device Contraindication: Treatment Not Indicated VTE Drug Contraindication: N/A - Med Ordered
--- NOTE | 2025-03-11 12:49 | MHC.CM.PN ---
IMM 03/11/25, PT MEDICALLY CLEARED TO DC TO [facility] FOR ACUTE REHAB, PT REQUESTED CM CONTACT /HCP RADHA, WHO IS AWARE AND AGREEABLE TO PLAN, VAN FOR BLS TRANSPORT AT 4:30PM
--- NOTE | 2025-03-11 14:14 | P.DS_ITS ---
DS: Providers Provider Date of Service: 03/11/25 Date of admission: 03/03/25 09:14 Date of discharge: 03/11/25 Primary care physician: CORTES Connors Consults: 03/02/25 20:43 Consult to Case Management Routine Comment: 03/03/25 20:54 Consult for Sitter Routine Reason for consultation: Agitation, attempting to get out of bed, fall risk, encephalopathic 03/04/25 08:00 Addiction Medicine Provider Routine Consulting Provider: Addiction Covering Reason for consultation: AUD 03/07/25 10:57 Consult to Neurology Routine Consulting Provider: [facility] Reason for consultation: encephalopathy Has provider been notified: No DS: Diagnosis Discharge Diagnosis (1) Alcohol withdrawal: Status: Resolved (2) Tremor: Status: Resolved DS: Summary Hospital Course Hospital Course: admission hpi Chief Complaint: Fall at home, confusion Pt is a 64-year-old male with a PMH significant for HTN,?GERD who initially presented yesterday on 03/02 to the ED after fall at home with head strike and laceration to the right scalp. Pt was accompanied by his who report pt was in his garage going up the stairs into the house when he felt too weak to open the door and fell backward down 4 stairs, striking his head. reports pt has been feeling overall generally unwell, unsteady, and shaky for the past few days. Pt was noted to have both a resting and essential tremor, that was initially concerning for possible parkinsonism. Workup yesterday showed nondisplaced fractures of left 8th and 9th ribs posteriorly. CT of head negative for acute intracranial findings, though showed small nonacute left cerebral hemisphere infarct and mild white matter chronic ischemic changes. CTA of C-spine negative for acute findings. Labs were significant for mild anemia of mild anemia of 13.4/39.8, potassium 3.2, magnesium 1.3, T bili 1.9, AST 79, ALT 46, and alk-phos 206. Ethyl alcohol levels undetectable. UA negative for UTI. Negative for flu, COVID, RSV. did not feel safe bringing the pt home due to his deconditioning and pt was placed in PT/CM physician observation. Overnight in overflow pt was noted to have increased shakiness and what seemed to be acute encephalopathy, as pt appeared to be hallucinating, shouting for a person named Karely, and occasionally talking nonsensically. Upon re-evaluation by ED clinician pt reported that he has been drinking daily for the past 20-30 years, typically at least 3 beers a day. Concern was for acute alcohol withdrawal. Pt seen and evaluated at bedside where he has been aggressive, combative, accusatory, apprehensive, and uncooperative with full interview and examination, as well as emotionally labile. Pt has intermittently increased c onfusion/encephalopathy. Pt is alert and oriented to self, place, time, and situation, as pt remembers falling at home in the garage with his head laceration. However, pt at other times speaks nonsensically/bizarrely, seemingly forgetting his fall and stating he came to the hospital because of his daughter and a performance she was doing at school. Pt uncooperative with full interview and exam, refusing to answer questions or participate with evaluation. Pt ends the interview tearful and feeling underappreciated for all the cleaning and cooking he does in the house. He then asks me to make sure I remember to bring him the keys when I come back to see him. Contacted the patient's who reports that pt has been heavy drinker all of his life, though he tends to hide this from other people, and is uncertain exactly how much he drinks. Reports it is likely 10-15+ beers daily, especially the past 5-10 years after retiring. She does not recall him ever experiencing similar withdrawal symptoms before. hospital course; Pt is a 64-year-old male with a PMH significant for HTN,?GERD who initially presented yesterday on 03/02 to the ED after fall at home with head strike and laceration to the right scalp for which mauro were applied. Head CT showed no acute bleed but possible old cerebellar stroke. Patient was admited for management of alcohol withdrawal, electrolytes abrnoamlities and metabolic encephalopathy Acute metabolic encephalopathy likely multifactorial including alcohol withdrawal, electrolytes abnormalities. He reported drink 10 to 15 beers a day, collaborate by the . He was initiallut tremulous agitated, confused, hallucinating from alcohol withdrawal. He was treated with phenobarbtial for alcohol withdral, hydrated with IvF and given folic acid and thiamine supplement, he remained confused, agitated for quite something, then eventually becoming very somnolent and Phenobarbital was scaled back and had further testing with ammonia level being normal, CT head and MRI show no acute stroke but old cerebellar infarct. He was evaluated by Neurology with [id number] for MRI and EEG, not yet done but has not demonstrated any evidence of seizure. Overall, his condition has improved being less confused, alert, oriented to self place and time. He is very weak, decondition and debilitated so physical therapy recommends STR. Seen by addiction med, advised to avoid alcohol Hypertensive urgency, BP as high as 209/10, iimproved, and likely related to etoh withdrawal, BP is now normal and has been restarted on his usual meds of diltiazem, lisinopril, metoprolol Follow BP closely HypOkalemia/hypomagnesemia--corrected and resolved. Fall at home S/p 5 mauro to close right scalp laceration, nondisplaced fractures of left 8th and 9th ribs posteriorly PT recommending STR upon discharge Neuropathy Continue gabapentin but reduce dose due to somnolence GERD Continue omeprazole Mood disorder Continue duloxetine Full Code DVT Prophylaxis: Lovenox Time Attestation Discharge Coordination Time (in mins): 45 Quality: Safe Use of Opioids Does Pt have an Active Cancer Diagnosis on the Problem List?: No Quality: Stroke Does the patient have a stroke diagnosis?: No Physical Exam Vital Signs: Vital Signs: Last Vital Signs Temp 96.9 F 03/11/25 11:35 Pulse 56 03/11/25 11:35 Resp 20 03/11/25 11:35 BP 94/51 L 03/11/25 11:35 Pulse Ox 95 03/11/25 11:35 O2 Del Method Room Air 03/11/25 11:35 BMI result Body Mass Index 19.4 Discharge Plan Discharge Anticipated Discharge Date/Time: 03/11/25 14:29 Patient Disposition: Xfer Inpatient Rehab Fac Discharge Diagnosis: alcohol withdrawal, metabolic encephalopathy Referrals: [facility] [Outside] - 1 Day Referral Note: [facility]UTE [facility] Lashawn Velasquez PA [Primary Care Provider, [facility]] - 1 Week Discharge Medications: Continued tizanidine 4 mg tablet 4 mg PO BID PRN (Reason: Muscle Spasm) valacyclovir 1 gram tablet 2,000 mg PO Q12H PRN (Reason: Outbreak) ondansetron HCl 8 mg tablet 8 mg PO Q8H PRN (Reason: Nausea And Vomiting) fluorouracil 5 % cream 1 appl topical BID gabapentin 400 mg capsule 400 mg PO DAILY Rx Instructions: TAKE W THE 800 MG, FOR A TDD OF 3600 MG. diltiazem HCl 360 mg capsule,extended release 24hr 360 mg PO DAILY omeprazole 20 mg capsule,delayed release(DR/EC) 20 mg PO DAILY lisinopril 40 mg tablet 40 mg PO QAM calcipotriene 0.005 % ointment 1 appl topical BID metoprolol tartrate 25 mg tablet 12.5 mg PO BID duloxetine 30 mg capsule,delayed release(DR/EC) 30 mg PO BID buprenorphine-naloxone 8-2 mg film 1 film sublingual DAILY Discontinued gabapentin 800 mg tablet 800 mg PO BID Rx Instructions: TAKE W THE 400 MG, FOR A TDD OF 3600 MG. ibuprofen 600 mg tablet 600 mg PO TID Discharge Orders: Discharge Order (Routine); Ordered 03/11/25 Ordered By: Raoul Yuen Diet: Advance to usual diet Activity on Discharge: As tolerated Stand Alone Forms: Patient Portal Discharge page Print Language: Cameroonian Activity Restrictions/Additional Instructions: your mauro need to be removed in 7-10 days. Please follow-up with your primary care physician tomorrow. If you have any worsening or new symptoms, please return to the emergency room or call 911 Care Plan Goals: recovery from alcohol withdrawal, metabolic encephalopathy and weakness Health Concerns: alcohol withdrawal, metabolic encephalopathy, weakness Plan of Treatment: to short term rehab, avoid alcohol, PT/OT at rehab Assessment: see above Patient Instructions: Laceration (ED), Rib Fracture (ED), Weakness (ED), Staple Care (ED), Fall Prevention (ED) Discharge Date/Time: 03/11/25 16:30
--- NOTE | 2025-03-11 15:36 | MHC.SL.SWA ---
Dysphasia Diet Status: no change Liquid Consistency and Strategies for Safe Swallow: Liquid Intake Recommendation: Thin Liquid Intake Strategies: Small Sips Solid Food Consistency: Dietary Recommendations: Chopped/Advanced (NDD3) Additional Modifications to Solid Foods: Oral Medication Intake: Whole with Liquid Please contact the pharmacy regarding appropriate crushable or liquid drug formulations that are available whenever modified delivery is recommended. Compensatory Strategies and Precautions to be Taken for Safe Swallow: Sitting Upright (90 deg) Small Bites and Sips Alternate Liquids/Solids Rate of Ingestion Change Supervision While Eating and Drinking for Safe Swallow: Intermittent Supervision Foods to Avoid: Difficult to chew solids, too large pieces of food. Swallowing Recommended Treatments: Compens. Strategy Educat. Recommendation for Speech: Inpatient Speech Therapy Comment: Recommend pt continue w/ chopped solids and thin liquids. Pills whole w/ liquid ok. Pt requires assistance w/ tray setup and intermittent supervision to ensure pt is able to access items and self-feed adequately. Wire Mill Rover Clinican/Clinical Fellow: No Supervisory Statement: I have reviewed and agree with the student/clinical fellow's documentation: N/A Speech Language Pathologist: Jacey Lindsey M.A., CCC-DEPARTMENT STORE MANAGER
[2025-03-11 16:00] VITALS: BP 143/78; PULSE 62; RESP 18; TEMP 36.7; O2SAT 96
== END 2025-03-11 16:30 | DRG 896 ==
LOC: HO.ED 03-03 09:08 → HO.EDOVER 03-03 09:45 → HO.IMC 03-03 21:06
PROVIDERS: Physician Assistant Medical; Registered Nurse Emergency; Admitting Provider Student in an Organized Health Care Education/Training Program; Emergency Provider Emergency Medicine; Visit Provider Internal Medicine
DX: F10.939 Alcohol use, unspecified with withdrawal, unspecified (principal); G93.41 Metabolic encephalopathy; F11.20 Opioid dependence, uncomplicated; S01.01XA Laceration without foreign body of scalp, initial encounter; G62.9 Polyneuropathy, unspecified; E87.6 Hypokalemia; E83.42 Hypomagnesemia; I10 Essential (primary) hypertension; I16.0 Hypertensive urgency; W19.XXXA Unspecified fall, initial encounter; Z20.822 Contact with and (suspected) exposure to COVID-19; Z79.899 Other long term (current) drug therapy
CPT/HCPCS: 0241U; 36415; 70450; 70551; 71100; 72125; 80048; 80053; 80307; 81001; 82140; 83540; 83735; 84484; 85025; 85027; 92526; 92610; 93005; 95816; 97116; 97162; 97530; 99285; J0360; J1650; J2004; J2560; J3411; J3475; J3480; J7120

== ENCOUNTER → 2025-03-02 15:31 | Outpatient (BNV) | payer MEDICARE, BC, SELFPAY | PROVIDERS: Emergency Provider Emergency Medicine; Visit Provider Specialist | DX: M50.322 Other cervical disc degeneration at C5-C6 level (principal); G44.309 Post-traumatic headache, unspecified, not intractable; S22.42XA Multiple fractures of ribs, left side, initial encounter for closed fracture | CPT/HCPCS: 70450; 71100; 72125 ==

== ENCOUNTER → 2025-03-02 15:31 | Outpatient (BNV) | payer MEDICARE, BC, SELFPAY | PROVIDERS: Admitting Provider Student in an Organized Health Care Education/Training Program; Emergency Provider Emergency Medicine; Visit Provider Internal Medicine Cardiovascular Disease | DX: I49.3 Ventricular premature depolarization (principal) | CPT/HCPCS: 93010 ==

== ENCOUNTER 2025-03-03 09:14 | Outpatient (BNV) | payer MEDICARE, BC, SELFPAY | END 2025-03-07 14:18 | PROVIDERS: Admitting Provider Student in an Organized Health Care Education/Training Program; Emergency Provider Emergency Medicine; Visit Provider Radiology Diagnostic Radiology | DX: I63.542 Cerebral infarction due to unspecified occlusion or stenosis of left cerebellar artery (principal) | CPT/HCPCS: 70551 ==

== ENCOUNTER 2025-03-03 09:14 | Outpatient (BNV) | payer MEDICARE, BC, SELFPAY | END 2025-03-06 16:30 | PROVIDERS: Admitting Provider Student in an Organized Health Care Education/Training Program; Emergency Provider Emergency Medicine; Visit Provider Radiology Diagnostic Radiology | DX: I63.542 Cerebral infarction due to unspecified occlusion or stenosis of left cerebellar artery (principal) | CPT/HCPCS: 70450 ==

== ENCOUNTER → 2025-03-03 09:14 | Outpatient (BNV) | payer MEDICARE, BC, SELFPAY | PROVIDERS: Admitting Provider Student in an Organized Health Care Education/Training Program; Emergency Provider Emergency Medicine; Visit Provider Psychiatry & Neurology Neurology | DX: G93.41 Metabolic encephalopathy (principal) | CPT/HCPCS: 99222 ==

== ENCOUNTER → 2025-03-03 09:14 | Outpatient (BNV) | payer MEDICARE, BC, SELFPAY | PROVIDERS: Admitting Provider Student in an Organized Health Care Education/Training Program; Emergency Provider Emergency Medicine; Visit Provider Psychiatry & Neurology Neurology | DX: G93.40 Encephalopathy, unspecified (principal) ==

== ENCOUNTER → 2025-03-03 09:14 | Outpatient (BNV) | payer MEDICARE, BC, SELFPAY | PROVIDERS: Admitting Provider Student in an Organized Health Care Education/Training Program; Emergency Provider Emergency Medicine; Visit Provider Nurse Practitioner Psychiatric/Mental Health | DX: F10.939 Alcohol use, unspecified with withdrawal, unspecified (principal) | CPT/HCPCS: 99222 ==

== ENCOUNTER → 2025-03-03 09:14 | Outpatient (BNV) | payer MEDICARE, BC, SELFPAY | PROVIDERS: Admitting Provider Student in an Organized Health Care Education/Training Program; Emergency Provider Emergency Medicine; Visit Provider Student in an Organized Health Care Education/Training Program | DX: F10.939 Alcohol use, unspecified with withdrawal, unspecified (principal); R25.1 Tremor, unspecified | CPT/HCPCS: 99223; 99232 ==

== ENCOUNTER 2025-06-26 13:34 | Outpatient (AMB) | payer MEDICARE, BC, SELFPAY ==
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
--- OUTSIDE RECORDS SUMMARY | 2025-06-26 17:13 | XMS_ITS | Encounter Summary ---
Author Organization [facility] Address [address] [place] [address] Phone Care Team Providers Care Staffing Director Name Role Phone Jennifer Simeon CONTACT CENTER AGENT Primary Care Provider [phone] Encounter Details Date Type Department Care Team (Late st Contact Info) Description 11/20/2023 Documentation Only [facility] [place], [address] [place] [address] Abby Fraire [address] [place] [address] Social History Tobacco Use Types Packs/Day Years Used Date Smoking Tobacco: Never Smokeless Tobacco: Never Alcohol Use Standard Drinks/Week Comments Never 0 (1 standard drink = 0.6 oz pur e alcohol) Sex and Gender Information Value Date Recorded Sex Assigned at Not on file Legal Sex Male 11:05 AM EDT Gender Identity Not on file Sexual Orientation Not on file documented as of this encounter Plan of Treatment Not on file documented as of this encounter Visit Diagnoses Not on filedocumented in this encounter Care Teams Staffing Director Relationship Specialty Start Date End Date Jennifer Simeon NP [address] [place] [phone] PCP - General Nurse Practitioner 05/04/20 documented as of this encounter
--- OUTSIDE RECORDS SUMMARY | 2025-06-26 17:13 | XMS_ITS | Encounter Summary ---
Author Organization [facility] [place], Address [address] [place] [address] Phone Care Team Providers Care Revenue Stamper Name Role Phone Jennifer Simeon RN INTERNAL MEDICINE Primary Care Provider [phone] Encounter Details Date Type Department Care Team (Late st Contact Info) Description 03/11/2024 Documentation Only [facility], [address] [place] [address] Alda Potts [address] [place] [address] Social History Tobacco Use Types [...] on filedocumented in this encounter Care Teams Revenue Stamper Relationship Specialty Start Date End Date Jennifer Simeon NP [address] [place] [address] PCP - General Nurse Practitioner 05/04/20 documented as of this encounter
--- OUTSIDE RECORDS SUMMARY | 2025-06-26 17:13 | XMS_ITS | Encounter Summary ---
Author Organization [facility] Address [address] [place] [address] Phone Care Team Providers Care Joint Yarner Name Role Phone Jennifer Simeon CLINICAL OPERATIONS MANAGER Primary Care Provider [phone] Encounter Details Date Type Department Care Team (Late st Contact Info) Description 11/20/2023 Documentation Only [facility] [place], [address] [place] [address] Abby Fraire [address] [place] [address] Social History Tobacco Use Types [...] on filedocumented in this encounter Care Teams Joint Yarner Relationship Specialty Start Date End Date Jennifer Simeon NP [address] [place] [phone] PCP - General Nurse Practitioner 05/04/20 documented as of this encounter
--- OUTSIDE RECORDS SUMMARY | 2025-06-26 17:13 | XMS_ITS | Clinical Summary ---
Author Organization [facility], Address [address] [place] [address] [place] [address] Phone Care Team Providers Care Manager Oracle Database Name Role Phone Jennifer Simeon NP Primary Care Provider [phone] Allergies Active Allergy Reactions Criticality Noted Date Comments Hydrochlorothiazide 11/17/2022 Ibuprofen 11/17/2022 Penicillins 11/17/2022 Sulfa Antibiotics Rash Low 06/25/2019 Medications citalopram (CeleXA) 10 MG tablet Take 10 mg by mouth 1 (one) time each day 09/05/2022 Active dilTIAZem CD (CARDIZEM CD) 360 MG 24 hr capsule Take by mouth 1 (one) time each day 09/01/2022 Active gabapentin (NEURONTIN) 800 MG tablet TAKE 1 TABLET BY MOUTH FOUR TIMES A DAY FOR 30 DAYS 10/23/2022 Active lisinopril 40 MG tablet Take 40 mg by mouth 1 (one) time each day in the morning 10/05/2022 Active metoprolol tartrate 25 MG tablet TAKE 1/2 TABLET BY MOUTH TWICE A DAY (DO NOT TAKE IF PULSE IS UNDER 50) 10/13/2022 Active magnesium oxide (MAG-OX) 400 MG tablet Take 1 tablet by mouth 1 (one) time each day 08/29/2022 Active omeprazole (PriLOSEC) [address] capsule Take by mouth 1 (one) time each day 08/28/2022 Active tiZANidine (ZANAFLEX) 4 MG tablet TAKE 1 TABLET BY MOUTH AT NIGHT NEEDED 10/05/2022 Active valACYclovir (VALTREX) 1 g tablet TAKE 2 TABLETS BY MOUTH EVERY 12 HOURS FOR 1 DAY NEEDED 09/05/2022 Active oxyCODONE (ROXICODONE) 10 MG immediate release tablet TAKE 1 TABLET BY MOUTH WITH ONE TYLENOL EVERY 3 TO 4 HOURS NEEDED FOR PAIN. 10/04/2022 Active Active Problems Problem Noted Date Diagnosed Date Hyposmolality and/or hyponatremia 11/20/2023 Thiamine deficiency 11/20/2023 Hyponatremia 11/20/2023 Essential hypertension 11/20/2023 Cobalamin deficiency 11/20/2023 Hyperkalemia 11/17/2022 Anemia 11/17/2022 Hypo-osmolality and hyponatremia 11/17/2022 Family History Medical History Relation Comments Hypertension Brother Other Brother multiple nodules of lung, nonsmoker Heart attack Father Heart failure Father Stroke Father Hypertension Mother Stroke Mother Hypertension Sister Relation Status Comments Brother Father Mother Sister Social History Tobacco Use Types Packs/Day Years Used Date Smoking Tobacco: Never Smokeless Tobacco: Never Tobacco Cessation:Counseling Given: Not Answered Alcohol Use Standard Drinks/Week Comments Never 0 (1 standard drink = 0.6 oz pur e alcohol) Sex and Gender Information Value Date Recorded Sex Assigned at Not on file Legal Sex Male 11:05 AM EDT Gender Identity Not on file Sexual Orientation Not on file Last Filed Vital Signs Vital Sign Reading Time Taken Comments Blood Pressure 132/58 05/23/2023 2:03 PM EDT Pulse - - Temperature - - Respiratory Rate - - Oxygen Saturation - - Inhaled Oxygen Concentration - - Weight - - Height - - Body Mass Index - - Plan of Treatment Health Maintenance Due Date Last Done Comments Pneumococcal Vaccine: 50+ Ye ars (1 of 2 - PCV) 1977 Colorectal Cancer Screening: Annual FOBT 2007 Colorectal Cancer Screening: Colonoscopy 2007 Colorectal Cancer Screening: Sigmoidoscopy 2007 Influenza Vaccine (#1) 2025 Hepatitis B Vaccine Aged Out No longe r eligible based on patient's age to complete this topic Insurance [facility] Medicare Care Teams Manager Oracle Database Relationship Specialty Start Date End Date Jennifer Simeon NP [address] [place] [address] PCP - General Nurse Practitioner 05/04/20
--- OUTSIDE RECORDS SUMMARY | 2025-06-26 17:13 | XMS_ITS | Encounter Summary ---
Author Organization [facility] Address [address] [place] [address] Phone Care Team Providers Care Oven Dauber Name Role Phone Jennifer Simeon NP Primary Care Provider [phone] Encounter Details Date Type Department Care Team (Late st Contact Info) Description 10/28/2022 Documentation Only [facility] [place], [address] [place] [id number] Jennifer Simeon NP [address] [place] [address] Social History Tobacco Use Types Packs/Day Years [...] on filedocumented in this encounter Care Teams Oven Dauber Relationship Specialty Start Date End Date Jennifer Simeon NP [address] [place] [address] PCP - General Nurse Practitioner 05/04/20 documented as of this encounter
--- OUTSIDE RECORDS SUMMARY | 2025-06-26 17:13 | XMS_ITS | Encounter Summary ---
Author Organization [facility] Address [address] [place] [address] Phone Care Team Providers Care Buying Intern Name Role Phone Jennifer Simeon [employer] Primary Care Provider [phone] Encounter Details Date Type Department Care Team (Late st Contact Info) Description 11/20/2023 Documentation Only [facility] [place], [address] [place] [address] Abby Fraire [address] [place] [address] Social History Tobacco Use Types [...] on filedocumented in this encounter Care Teams Buying Intern Relationship Specialty Start Date End Date Jennifer Simeon NP [address] [place] [phone] PCP - General Nurse Practitioner 05/04/20 documented as of this encounter
== END 2025-06-26 14:16 | disposition home or self-care (01) ==
LOC: HO.HSM 13:34
PROVIDERS: PCP Nurse Practitioner; Referring Provider Nurse Practitioner; Visit Provider Registered Nurse
DX: M79.2 Neuralgia and neuritis, unspecified (principal); M54.16 Radiculopathy, lumbar region; Z86.73 Personal history of transient ischemic attack (TIA), and cerebral infarction without residual deficits
CPT/HCPCS: 99214

== ENCOUNTER → 2025-06-26 13:34 | Outpatient (BNVA) | payer MEDICARE, BC, SELFPAY | PROVIDERS: PCP Nurse Practitioner; Referring Provider Nurse Practitioner; Visit Provider Registered Nurse | DX: M79.2 Neuralgia and neuritis, unspecified (principal); M54.16 Radiculopathy, lumbar region; Z86.73 Personal history of transient ischemic attack (TIA), and cerebral infarction without residual deficits | CPT/HCPCS: 99212 ==